=== PATIENT | male | born 1940 | race Caucasian/White ===

== ENCOUNTER 2017-07-06 16:49 | Inpatient (IN) | payer MEDICARE ==
[2017-07-06] VITALS (7 sets, daily range): BP systolic 110–150; BP diastolic 61–79; PULSE 65–121; RESP 18–20; TEMP 97.6–98.3; O2SAT 91–96
[~2017-07-06] VITALS: Ht 190.5 cm; Wt 119.5 kg
[~2017-07-06 16:49] MED LIST: AMAR4TAB PO; FURO1TAB93 PO; GLUCTAB PO; HYDR-2768 PO; LISI-591 PO; NIAC500 PO; POTA-243 PO; TAB-TAB PO; VERA240CR PO; Z.0.OXYGEN INH; ZOCO10TA PO
[2017-07-06] MEDS ORDERED: TRAD5TAB PO (17:00)
[2017-07-06] MEDS ORDERED: TAMS5CAP PO (17:00)
[2017-07-06] MEDS ORDERED: LISI-519 PO (17:00)
[2017-07-06] MEDS ORDERED: GLYB2.5T3 PO (17:00)
[2017-07-06] MEDS ORDERED: METF500T PO (17:00)
[2017-07-06] MEDS ORDERED: ASPI-183 PO (17:01)
[2017-07-06] MEDS ORDERED: HYDR12.57 PO (17:02)
[2017-07-06] MEDS ORDERED: FURO1TAB62 PO (17:02)
[2017-07-06] MEDS: RESP: ALBUTEROL 2.5 MG/IPRATROPIUM 0.5 MG NEB (SCH) INH (17:15)
[2017-07-06] MEDS ORDERED: methylPREDNISolone SOD SUCC 125 MG/2 ML VIAL IV PUSH ONE (17:15)
[2017-07-06 17:16] LABS: AUTOMATED NEUTROPHIL # 6.5 TH/MM3 (1.8-7.7); BASOPHIL # 0.2 TH/MM3 (0-0.2); BASOPHIL % 2.2 % (0.0-2.0); EOSINOPHIL # 0.2 TH/MM3 (0-0.4); EOSINOPHIL % 1.7 % (0.0-4.0); HEMATOCRIT 43.4 % (39.0-51.0); HEMOGLOBIN 13.9 GM/DL (13.0-17.0); LYMPH % 16.9 % (9.0-44.0); LYMPHOCYTE # 1.6 TH/MM3 (1.0-4.8); MEAN CELL VOLUME 93.7 FL (80.0-100.0); MEAN PLATELET VOLUME 8.7 FL (7.0-11.0); MONO % 12.2 % (0.0-8.0); MONOCYTE # 1.2 TH/MM3 (0-0.9); PLATELET COUNT 322 TH/MM3 (150-450); RED BLOOD COUNT 4.64 MIL/MM3 (4.50-5.90); RED CELL DISTRIBUTION WIDTH 14.4 % (11.6-17.2); WHITE BLOOD COUNT 9.7 TH/MM3 (4.0-11.0)
[2017-07-06] MEDS: SODIUM CHLORIDE 0.9% FLUSH 10 ML FLUSH IVF PRN ×2 (17:22→18:07)
--- NOTE | 2017-07-06 17:22 | RADRPT ---
EXAM DATE/TIME: 07/06/2017 17:12 [place] COMPARISON: No previous studies available for comparison. INDICATIONS : Short of breath MEDICAL HISTORY : Chronic obstructive pulmonary disease. Diabetes mellitus type II. SURGICAL HISTORY : None. ENCOUNTER: Initial ACUITY: 3 days PAIN SCORE: 0/10 LOCATION: Bilateral chest FINDINGS: Mild patchy air space opacities seen in both lungs, left more so than right and both sides basilar pr edominant. No dense or confluent consolidation. No pleural effusion or pneumothorax seen. Heart size upper limits of normal. CONCLUSION: Left greater than right patchy interstitial infiltrate. Viral or atypical pneumonia or early communit y acquired pneumonia are in the differential. Stephon Robert MD on July 06, 2017 at 17:18 Board Certified Radiologist. This report was verified electronically.
[2017-07-06 17:28] LABS: CHLORIDE 103 MEQ/L (98-107); INTERNATIONAL NORMALIZED RATIO 1.1 RATIO; PROTHROMBIN TIME - PATIENT 10.9 SEC (9.8-11.6); SODIUM (NA) 139 MEQ/L (136-145)
[2017-07-06 17:31] LABS: BICARBONATE 30.3 MEQ/L (21.0-32.0); CALCIUM 9.1 MG/DL (8.5-10.1); GLUCOSE,RANDOM 144 MG/DL (74-106)
[2017-07-06 17:32] LABS: BLOOD UREA NITROGEN 16 MG/DL (7-18)
[2017-07-06 17:35] LABS: GLOMERULAR FILTRATION RATE 65 ML/MIN (>89)
[2017-07-06 17:39] LABS: TROPONIN I LESS THAN 0.02 NG/ML (0.02-0.05)
--- NOTE | 2017-07-06 17:39 | PD ---
HPI Chief Complaint: Respiratory Symptoms Time Seen by Provider: 17:01 Travel History International Travel<30 days: No Contact w/Intl Traveler<30days: No Traveled to known affect area: No History of Present Illness HPI 77-year-old male came to the emergency room brought by EMS with history of progressive shortness of breath for past 2-3 days. Patient was recently diagnosed with atrial fibrillation last week. His daughter is here was giving more of the medical history. She is a nurse. Patient denies any chest pain. Patient says the shortness of breath is worse when he tries to lay down flat. Patient requires CPAP at night and says that the CPAP doesn't really help with this shortness of breath. He has to sleep sitting up. He has been short of breath on exertion as well. No history of fever or chills. He is not really coughing or bringing up any sputum patient requires 2 L of oxygen at home. His oxygen saturation was 90% on 2 L of oxygen. Patient has not seen a carousel operator yet and has an appointment on Friday. [facility] Past Medical History Narrative Medical List of his past medical, surgical, social and family history reviewed from the nursing note. Arthritis: Yes Asthma: No Atrial Fibrillation: Yes Autoimmune Disease: No Blood Disorders: No Anxiety: No Depression: No Cancer: No Cardiovascular Problems: Yes High Cholesterol: No Chest Pain: No Congestive Heart Failure: Yes COPD: Yes Cerebrovascular Accident: Yes Diabetes: Yes Patient Takes Glucophage: Yes Endocrine: Yes Glaucoma: No Genitourinary: No Headaches: Yes (OCCASSIONALLY) Hypertension: Yes Immune Disorder: No Musculoskeletal: Yes ( A CHILD 5 YO BROKE RIGHT ARM) Neurologic: Yes Psychiatric: No Reproductive: No Respiratory: Yes Migraines: No Myocardial Infarction: No Seizures: No Sleep Apnea: Yes (NEWLY DIAGNOSED IN PAST FEW DAYS) Thyroid Disease: No Influenza Vaccination: Yes ?: Not Past Surgical History AICD: No Arteriovenous Shunt: No Insulin Pump: No Joint Replacement: No Pacemaker: No Social History Alcohol Use: Yes (HX OF BUT NO LONGER DRINKS ALCOHOL.) Tobacco Use: No Substance Use: No Allergies-Medications (Allergen,Severity, Reaction): Coded Allergies: No Known Allergies (Verified Allergy, Unknown, 07/06/17) Comments No known drug allergies. Reported Meds & Prescriptions Reported Meds & Active Scripts Active Reported Lasix (Furosemide) 20 Mg Tab 20 Mg PO DAILY Hydrochlorothiazide 12.5 Mg Cap 0 PO DAILY Aspirin 325 Mg Tab 325 Mg PO DAILY Tradjenta (Linagliptin) 5 Mg Tab 5 Mg PO DAILY Flomax (Tamsulosin HCl) 0.4 Mg Cap 0 PO DAILY Metformin (Metformin HCl) 500 Mg Tab 0 PO BIDPC Glyburide 2.5 Mg Tab 0 PO BID Take with meals at the same time each day Lisinopril 5 Mg Tab 0 PO DAILY Narrative Medication List of his home medications reviewed from the nursing note. Review of Systems Except as stated in HPI: all other systems reviewed are Neg Respiratory: Positive: Shortness of Breath, Orthopnea Physical Exam Narrative GENERAL: Awake, alert, morbidly obese, moderate distress SKIN: Focused skin assessment warm/dry. HEAD: Atraumatic. Normocephalic. EYES: Pupils equal and round. No scleral icterus. No injection or drainage. ENT: No nasal bleeding or discharge. Mucous membranes pink and moist. NECK: Trachea midline. No JVD. CARDIOVASCULAR: Regular rate and rhythm. No murmur appreciated. RESPIRATORY: Diminished air entry bilaterally. GASTROINTESTINAL: Abdomen soft, non-tender, nondistended. Hepatic and splenic margins not palpable. MUSCULOSKELETAL: No obvious deformities. No clubbing. No cyanosis. No edema. NEUROLOGICAL: Awake and alert. No obvious cranial nerve deficits. Motor grossly within normal limits. Normal speech. PSYCHIATRIC: Appropriate mood and affect; insight and judgment normal. Data Data Last Documented VS Vital Signs Date Time Temp Pulse Resp B/P (MAP) Pulse Ox O2 Delivery O2 Flow Rate FiO2 07/06/17 17:23 65 18 150/65 (93) 95 Aerosol Mask 07/06/17 17:15 4.00 07/06/17 16:55 98.3 Orders Orders Complete Blood Count With Diff (07/06/17 17:07) Basic Metabolic Panel (Bmp) (07/06/17 17:07) B-Type Natriuretic Peptide (07/06/17 17:07) Prothrombin Time / Inr (Pt) (07/06/17 17:07) Troponin I (07/06/17 17:07) Iv Access Insert/Monitor (07/06/17 17:07) Electrocardiogram (07/06/17 17:07) Ecg Monitoring (07/06/17 17:07) Oximetry (07/06/17 17:07) Oxygen Administration (07/06/17 17:07) Chest, Single Ap (07/06/17 17:07) Sodium Chloride 0.9% Flush (Ns Flush) (07/06/17 17:15) Methylprednisolone So Succ Inj (Solumedr (07/06/17 17:15) Albuterol-Ipratropium Neb (Duoneb Neb) (07/06/17 17:15) Blood Culture (07/06/17 17:47) Ceftriaxone Inj (Rocephin Inj) (07/06/17 18:00) Azithromycin Inj (Zithromax Inj) (07/06/17 18:00) Furosemide Inj (Lasix Inj) (07/06/17 18:00) Admit Order (Ed Use Only) (07/06/17 17:59) Labs Laboratory Tests Test 07/06/17 17:00 White Blood Count 9.7 TH/MM3 Red Blood Count 4.64 MIL/MM3 Hemoglobin 13.9 GM/DL Hematocrit 43.4 % Mean Corpuscular Volume 93.7 FL Mean Corpuscular Hemoglobin 30.0 PG Mean Corpuscular Hemoglobin Concent 32.0 % Red Cell Distribution Width 14.4 % Platelet Count 322 TH/MM3 Mean Platelet Volume 8.7 FL Neutrophils (%) (Auto) 67.0 % Lymphocytes (%) (Auto) 16.9 % Monocytes (%) (Auto) 12.2 % Eosinophils (%) (Auto) 1.7 % Basophils (%) (Auto) 2.2 % Neutrophils # (Auto) 6.5 TH/MM3 Lymphocytes # (Auto) 1.6 TH/MM3 Monocytes # (Auto) 1.2 TH/MM3 Eosinophils # (Auto) 0.2 TH/MM3 Basophils # (Auto) 0.2 TH/MM3 CBC Comment DIFF FINAL Differential Comment Prothrombin Time 10.9 SEC Prothromb Time International Ratio 1.1 RATIO Blood Urea Nitrogen 16 MG/DL Creatinine 1.10 MG/DL Random Glucose 144 MG/DL Calcium Level 9.1 MG/DL Sodium Level 139 MEQ/L Potassium Level 4.0 MEQ/L Chloride Level 103 MEQ/L Carbon Dioxide Level 30.3 MEQ/L Anion Gap 6 MEQ/L Estimat Glomerular Filtration Rate 65 ML/MIN Troponin I LESS THAN 0.02 NG/ML B-Type Natriuretic Peptide 476 PG/ML MDM Medical Decision Making Medical Screen Exam Complete: Yes Emergency Medical Condition: Yes Medical Record Reviewed: Yes Interpretation(s) Elevated EKG was reviewed by me. Atrial fibrillation, left axis deviation, LVH by voltage. Heart rate of 72 bpm. Differential Diagnosis CHF, COPD, pneumonia Narrative Course 6:05 PM she was given 2 DuoNeb times and IV Lasix. Blood test results came back in its within acceptable limits except for BNP of was 500. Chest x-rays read by the radiologist as bilateral interstitial infiltrate possibly pneumonia. Based on that I have given him IV Rocephin and Zithromax. However in my opinion this could be pulmonary edema given the fact that patient does not have any fever, cough or I high white blood cell count. Decided to admit him and I discussed the case with the patient and the family who are in agreement. I discussed the case with the hospitalist who accepted the patient. Procedures EKG Prior to Arrival: No Diagnosis Primary Impression: Respiratory distress Additional Impressions: CHF (congestive heart failure) Qualified Codes: I50.9 - Heart failure, unspecified Pneumonia Qualified Codes: J18.9 - Pneumonia, unspecified organism Admitting Information Admitting Physician Requests: it Serene Alaniz MD Jul 06, 2017 17:39
[2017-07-06] MEDS ORDERED: FUROSEMIDE 40 MG/4 ML VIAL IV PUSH ONE (18:00)
[2017-07-06] MEDS ORDERED: cefTRIAXone INJ 1,000 MG in SODIUM CHLORIDE 0.9% INJ 100 ML IV ONE (18:00)
[2017-07-06] MEDS ORDERED: AZITHROMYCIN INJ 500 MG in SODIUM CHLOR 0.9% 250 ML INJ 250 ML IV ONE (18:00)
[2017-07-06] MEDS ORDERED: BISACODYL 10 MG SUPP RECTAL PRN (19:00)
[2017-07-06] MEDS ORDERED: TEMAZEPAM 15 MG CAP PO PRN (19:00)
[2017-07-06] MEDS ORDERED: NALOXONE HCL 0.4 MG/ML AMP IV PUSH PRN (19:00)
[2017-07-06] MEDS ORDERED: ACETAMINOPHEN 325 MG TAB PO PRN (19:00)
[2017-07-06] MEDS ORDERED: SODIUM CHLORIDE 0.9% FLUSH 10 ML FLUSH IV FLUSH PRN (19:00)
[2017-07-06] MEDS ORDERED: SENNOSIDES 8.6 MG TAB PO PRN (19:00)
--- NOTE | 2017-07-06 19:09 | HHI.HP ---
HPI Service [facility] Hospitalists Primary Care Physician Torin Ventura MD Admission Diagnosis respiratory distress, congestive heart failure, pneumonia Chief Complaint: increasing SOB over several days Travel History International Travel<30 Days: No Contact w/Intl Traveler <30 Da: No Traveled to Known Affected Are: No History of Present Illness 77-year-old male came to the emergency room brought by EMS with history of progressive shortness of breath for past 2-3 days. Patient was recently diagnosed with atrial fibrillation last week. His daughter is here was giving more of the medical history. She is a nurse. Patient denies any chest pain. Patient says the shortness of breath is worse when he tries to lay down flat. Patient requires CPAP at night and says that the CPAP doesn't really help with this shortness of breath. He has to sleep sitting up. He has been short of breath on exertion as well. No history of fever or chills. He is not really coughing or bringing up any sputum patient requires 2 L of oxygen at home. His oxygen saturation was 90% on 2 L of oxygen. Patient has not seen a steam drier tender yet and has an appointment on Friday. In er chest xray was consistent with probable CHF and possibly infiltrates and given lasix and started on rocephin and zithromax. Review of Systems Respiratory: COMPLAINS OF: Shortness of breath Cardiovascular: COMPLAINS OF: Dyspnea on Exertion Past Family Social History Past Medical History sleep apnea,CHF new onset afib,copd cva diverticulosis Past Surgical History fx arm and hand Reported Medications lasix 20 hctz 12.5,trajenta5,flomax.4 metformin 500 bid,glyburide 2.5 bid lisinopril5 Allergies: Coded Allergies: No Known Allergies (Verified Adverse Reaction, Unknown, 07/06/17) Social History former heavy smoker none over 8 years rare etoh Physical Exam Vital Signs Vital Signs Date Time Temp Pulse Resp B/P (MAP) Pulse Ox O2 Delivery O2 Flow Rate FiO2 07/06/17 18:24 91 Nasal Cannula 4.00 07/06/17 18:24 79 20 110/79 (89) 91 Nasal Cannula 2.00 07/06/17 17:23 65 18 150/65 (93) 95 Aerosol Mask 07/06/17 17:15 93 Nasal Cannula 4.00 07/06/17 17:14 92 Nasal Cannula 4.00 07/06/17 17:06 22 92 Nasal Cannula 2.00 07/06/17 16:55 98.3 88 20 138/73 (94) 92 Physical Exam GENERAL: This is a well-nourished, well-developed patient, in no apparent distress. SKIN: No rashes, ecchymoses or lesions. Cool and dry. HEAD: Atraumatic. Normocephalic. No temporal or scalp tenderness. EYES: Pupils equal round and reactive. Extraocular motions intact. No scleral icterus. No injection or drainage. ENT: Nose without bleeding, purulent drainage or septal hematoma. Throat without erythema, tonsillar hypertrophy or exudate. Uvula midline. Airway patent. NECK: Trachea midline. No JVD or lymphadenopathy. Supple, nontender, no meningeal signs. CARDIOVASCULAR: Regular rate and rhythm without murmurs, gallops, or rubs. RESPIRATORY: Bilateral decrease breath sounds with rales GASTROINTESTINAL: Abdomen soft, non-tender, nondistended. No hepato-splenomegaly , or palpable masses. No guarding. MUSCULOSKELETAL: Extremities without clubbing, cyanosis, or edema. No joint tenderness, effusion, or edema noted. No calf tenderness. Negative Homans sign bilaterally. NEUROLOGICAL: Awake and alert. Cranial nerves II through XII intact. Motor and sensory grossly within normal limits. Five out of 5 muscle strength in all muscle groups. Normal speech. Laboratory Laboratory Tests Test 07/06/17 17:00 White Blood Count 9.7 Red Blood Count 4.64 Hemoglobin 13.9 Hematocrit 43.4 Mean Corpuscular Volume 93.7 Mean Corpuscular Hemoglobin 30.0 Mean Corpuscular Hemoglobin Concent 32.0 Red Cell Distribution Width 14.4 Platelet Count 322 Mean Platelet Volume 8.7 Neutrophils (%) (Auto) 67.0 Lymphocytes (%) (Auto) 16.9 Monocytes (%) (Auto) 12.2 Eosinophils (%) (Auto) 1.7 Basophils (%) (Auto) 2.2 Neutrophils # (Auto) 6.5 Lymphocytes # (Auto) 1.6 Monocytes # (Auto) 1.2 Eosinophils # (Auto) 0.2 Basophils # (Auto) 0.2 CBC Comment DIFF FINAL Differential Comment Prothrombin Time 10.9 Prothromb Time International Ratio 1.1 Blood Urea Nitrogen 16 Creatinine 1.10 Random Glucose 144 Calcium Level 9.1 Sodium Level 139 Potassium Level 4.0 Chloride Level 103 Carbon Dioxide Level 30.3 Anion Gap 6 Estimat Glomerular Filtration Rate 65 Troponin I LESS THAN 0.02 B-Type Natriuretic Peptide 476 Date/Time Source Procedure Growth Status 07/06/17 18:05 Blood Peripheral Aerobic Blood Culture Pending Received 07/06/17 18:05 Blood Peripheral Anaerobic Blood Culture Pending Received Result Diagram: 07/06/17 1700 07/06/17 1700 Imaging Last 24 hours Impressions Chest X-Ray 07/06/17 1707 Signed Impressions: Service Date/Time: Thursday, July 06, 2017 17:12 - CONCLUSION: Left greater than right patchy interstitial infiltrate. Viral or atypical pneumonia or early community acquired pneumonia are in the differential. Stephon Robert MD Course started on lasix rpcephin and zithromax ekg controlled a fib Ezequielrini VTE Risk Assessment Caprini VTE Risk Assessment: Mod/High Risk (score >= 2) Caprini Risk Assessment Model Point Value = 1 Point Value = 2 Point Value = 3 Point Value = 5 Age 41-60 Minor surgery BMI > 25 kg/m2 Swollen legs Varicose veins or History of unexplained or recurrent spontaneous Oral contraceptives or hormone replacement Sepsis (< 1 month) Serious lung disease, including pneumonia (< 1 month) Abnormal pulmonary function Acute myocardial infarction Congestive heart failure (< 1 month) History of inflammatory bowel disease Medical patient at bed rest Age 61-74 Arthroscopic surgery Major open surgery (> 45 min) Laparoscopic surgery (> 45 min) Malignancy Confined to bed (> 72 hours) Immobilizing plaster cast Central venous access Age >= 75 History of VTE Family history of VTE Factor V Leiden Prothrombin 22216C Lupus anticoagulant Anticardiolipin antibodies Elevated serum homocysteine Heparin-induced thrombocytopenia Other congenital or acquired thrombophilia Stroke (< 1 month) Elective arthroplasty Hip, pelvis, or leg fracture Acute spinal cord injury (< 1 month) Prophylaxis Regimen Total Risk Factor Score Risk Level Prophylaxis Regimen 0-1 Low Early ambulation 2 Moderate Order ONE of the following: *Sequential Compression Device (SCD) *Heparin 5000 units SQ BID 3-4 Higher Order ONE of the following medications: *Heparin 5000 units SQ TID *Enoxaparin/Lovenox 40 mg SQ daily (WT < 150 kg, CrCl > 30 mL/min) *Enoxaparin/Lovenox 30 mg SQ daily (WT < 150 kg, CrCl > 10-29 mL/min) *Enoxaparin/Lovenox 30 mg SQ BID (WT < 150 kg, CrCl > 30 mL/min) AND/OR *Sequential Compression Device (SCD) 5 or more Highest Order ONE of the following medications: *Heparin 5000 units SQ TID (Preferred with Epidurals) *Enoxaparin/Lovenox 40 mg SQ daily (WT < 150 kg, CrCl > 30 mL/min) *Enoxaparin/Lovenox 30 mg SQ daily (WT < 150 kg, CrCl > 10-29 mL/min) *Enoxaparin/Lovenox 30 mg SQ BID (WT < 150 kg, CrCl > 30 mL/min) AND *Sequential Compression Device (SCD) Assessment and Plan Problem List: (1) Respiratory distress ICD Codes: R06.03 - Acute respiratory distress Status: Acute Plan: continue oxygen uses 2l at home at night (2) CHF (congestive heart failure) ICD Codes: I50.9 - Heart failure, unspecified Status: Acute Plan: will need 2d echo continue lasix IV follow labs consult cardiology (3) Pneumonia ICD Codes: J18.9 - Pneumonia, unspecified organism Status: Acute Plan: continue rocephin and zithromax Assessment and Plan further plan as case develops Code Status full Discussed Condition With patient Physician Certification 2 Midnight Certification Type: Admission for Inpatient Services Order for Inpatient Services The services are ordered in accordance with Medicare regulations or non- Medicare payer requirements, as applicable. In the case of services not specified as inpatient-only, they are appropriately provided as inpatient services in accordance with the 2-midnight benchmark. Estimated LOS (days): 3 3 days is the estimated time the patient will need to remain in the hospital, assuming treatment plan goals are met and no additional complications. Post-Hospital Plan: Not yet determined Problem Qualifiers (1) CHF (congestive heart failure): Qualified Codes: I50.9 - Heart failure, unspecified (2) Pneumonia: Qualified Codes: J18.9 - Pneumonia, unspecified organism John Lucas MD Jul 06, 2017 19:09
[2017-07-06] MEDS ORDERED: GLUCAGON 1 MG/ML VIAL OTHER PRN (19:30)
[2017-07-06] MEDS ORDERED: DEXTROSE 50% IN WATER 50 ML VIAL(D50) IV PUSH PRN (19:30)
[2017-07-06] MEDS: INSULIN ASPART SUPPLEMENTAL SCALE SQ SCH (20:53)
[2017-07-06] MEDS: DOCUSATE SODIUM 50 MG/SENNA 8.6 MG TAB PO SCH (20:54)
[2017-07-06] MEDS: SODIUM CHLORIDE 0.9% FLUSH 10 ML FLUSH IV FLUSH SCH (20:55)
[2017-07-07] VITALS (8 sets, daily range): BP systolic 100–150; BP diastolic 60–78; PULSE 80–106; RESP 16–22; TEMP 95.4–98.6; O2SAT 91–96
[2017-07-07 06:37] LABS: BICARBONATE 30.2 MEQ/L (21.0-32.0)
[2017-07-07] MEDS: glyBURIDE 2.5 MG TAB PO SCH ×2 (08:00→17:00)
[2017-07-07] MEDS: INSULIN ASPART SUPPLEMENTAL SCALE SQ SCH ×4 (08:00→21:00)
[2017-07-07] MEDS: ASPIRIN 325 MG TAB PO SCH (08:45)
[2017-07-07] MEDS: TAMSULOSIN HCL 0.4 MG CAP PO SCH (08:46)
[2017-07-07] MEDS: metFORMIN HCL 500 MG TAB PO SCH ×2 (08:46→17:46)
[2017-07-07] MEDS: DOCUSATE SODIUM 50 MG/SENNA 8.6 MG TAB PO SCH ×2 (08:46→21:30)
[2017-07-07] MEDS: FUROSEMIDE 20 MG/2 ML VIAL IV PUSH SCH ×2 (08:46→17:47)
[2017-07-07] MEDS: SODIUM CHLORIDE 0.9% FLUSH 10 ML FLUSH IV FLUSH SCH ×2 (08:47→21:30)
[2017-07-07] MEDS: PATIENT OWN: (Linagliptin (Tradjenta) 5 MG) PO SCH (09:00)
[2017-07-07] MEDS ORDERED: LISINOPRIL 5 MG TAB PO SCH (09:00)
[2017-07-07] MEDS ORDERED: PNEUMOCOCCAL POLYVALENT INJ 25 MCG/0.5 ML SYR IM ONE (10:00)
[2017-07-07] MEDS ORDERED: POTASSIUM CHLORIDE 8 MEQ CONTROLLED RELEASE TAB PO ONE (10:30)
--- NOTE | 2017-07-07 10:39 | HHI.PR ---
Subjective Remarks Patient admitted to hospital with SOB in CHF also ?infiltrates started on Lasix IV and Rocephin and Zithromax ,pending 2d echo and cardiac evaluation as was found as out patient to be in atrial fib was increased to full asa is on gumaro and will check lipids as well. Patient still with some SOB is urinating well. Patient did not sleep will increase temazepam to 30mg and potassium was at 3.8 start po potassium today. Patient on review of EKG strip had increase in heart rate ,may need addition of b brandon . Objective Vitals GENERAL: SKIN: Warm and dry. HEAD: Atraumatic. Normocephalic. EYES: Pupils equal and round. No scleral icterus. No injection or drainage. ENT: No nasal bleeding or discharge. Mucous membranes pink and moist. NECK: Trachea midline. No JVD. CARDIOVASCULAR: IRREG rate. RESPIRATORY: No accessory muscle use. Rales bases better air movement GASTROINTESTINAL: Abdomen soft, non-tender, nondistended. Hepatic and splenic margins not palpable. MUSCULOSKELETAL: Extremities without clubbing, cyanosis, or edema. No obvious deformities. NEUROLOGICAL: Awake and alert. No obvious cranial nerve deficits. Motor grossly within normal limits. Five out of 5 muscle strength in the arms and legs. Normal speech. PSYCHIATRIC: Appropriate mood and affect; insight and judgment normal. Vital Signs Date Time Temp Pulse Resp B/P (MAP) Pulse Ox O2 Delivery O2 Flow Rate FiO2 07/07/17 08:24 92 Nasal Cannula 3.00 07/07/17 08:00 98.6 106 22 143/69 (93) 94 07/07/17 05:41 98.0 80 22 127/65 (85) 91 07/07/17 00:24 97.9 96 18 100/62 (75) 93 07/06/17 22:00 121 07/06/17 21:01 97.6 111 20 112/61 (78) 91 07/06/17 19:40 07/06/17 19:25 110 96 Nasal Cannula 4.00 07/06/17 19:20 92 20 93 Nasal Cannula 4.00 07/06/17 18:24 91 Nasal Cannula 4.00 07/06/17 18:24 79 20 110/79 (89) 91 Nasal Cannula 2.00 07/06/17 17:23 65 18 150/65 (93) 95 Aerosol Mask 07/06/17 17:15 93 Nasal Cannula 4.00 07/06/17 17:14 92 Nasal Cannula 4.00 07/06/17 17:06 22 92 Nasal Cannula 2.00 07/06/17 16:55 98.3 88 20 138/73 (94) 92 Result Diagram: 07/06/17 1700 07/07/17 0445 Imaging Last 24 hours Impressions Chest X-Ray 07/06/17 1707 Signed Impressions: Service Date/Time: Thursday, July 06, 2017 17:12 - CONCLUSION: Left greater than right patchy interstitial infiltrate. Viral or atypical pneumonia or early community acquired pneumonia are in the differential. Stephon Robert MD A/P Problem List: (1) Respiratory distress ICD Codes: R06.03 - Acute respiratory distress Status: Acute Plan: continue oxygen uses 2l at home at night will monitor oxygen saturations (2) CHF (congestive heart failure) ICD Codes: I50.9 - Heart failure, unspecified Status: Acute Plan: will need 2d echo continue lasix IV follow labs consult cardiology BNP still elevated (3) Pneumonia ICD Codes: J18.9 - Pneumonia, unspecified organism Status: Acute Plan: continue rocephin and zithromax (4) Atrial fibrillation ICD Codes: I48.91 - Unspecified atrial fibrillation Plan: await cardiac evaluation continue for now full asa 2d echo pending may need b brandon Assessment and Plan continue current plan Problem Qualifiers (1) CHF (congestive heart failure): Qualified Codes: I50.9 - Heart failure, unspecified (2) Pneumonia: Qualified Codes: J18.9 - Pneumonia, unspecified organism (3) Atrial fibrillation: Qualified Codes: I48.91 - Unspecified atrial fibrillation John Lucas MD Jul 07, 2017 10:39
--- NOTE | 2017-07-07 13:15 | PD.CONS ---
HPI Consult Requested By Primary Care Physician Torin Ventura MD History of Present Illness 77-year-old male with a past medical history of COPD on O2, DM, HTN, BPH who presented for shortness of breath. The patient had been having shortness of breath for the past 2 or 3 days. He has been having orthopnea. He denies any lower extremity swelling, cough, fever, chills. He denies any chest pain or palpitations. He denies any prior history of heart disease, CHF, or arrhythmia. He had an EKG done last week which showed frequent PACs, EKG and telemetry currently seem to show the same. He had a chest x-ray which showed pneumonia vs edema. He's received antibiotics and IV diuretics overnight and is feeling somewhat improved today. (Sathya Vargas) Review of Systems Negative except as stated in history of present illness (Sathya Vargas) Past Family Social History Allergies: Coded Allergies: No Known Allergies (Verified Allergy, Unknown, 07/06/17) Past Medical History COPD on O2 Diabetes mellitus CVA Diverticulosis Hypertension BPH Past Surgical History fx arm and hand Reported Medications Reported Meds & Active Scripts Active Reported Lasix (Furosemide) 20 Mg Tab 20 Mg PO DAILY Hydrochlorothiazide 12.5 Mg Cap 0 PO DAILY Aspirin 325 Mg Tab 325 Mg PO DAILY Tradjenta (Linagliptin) 5 Mg Tab 5 Mg PO DAILY Flomax (Tamsulosin HCl) 0.4 Mg Cap 0 PO DAILY Metformin (Metformin HCl) 500 Mg Tab 0 PO BIDPC Glyburide 2.5 Mg Tab 0 PO BID Take with meals at the same time each day Lisinopril 5 Mg Tab 0 PO DAILY Active Ordered Medications Current Medications Medications (Trade) Dose Ordered Sig/Smiley Route Start Time Stop Time Status Last Admin (Aspirin) 325 mg DAILY PO 07/07/17 09:00 07/07/17 08:45 (Diabeta) 2.5 mg DAILY@0800,1700 PO 07/07/17 08:00 (Prinivil) 5 mg DAILY PO 07/07/17 09:00 07/07/17 08:45 (Glucophage) 500 mg BIDPC PO 07/07/17 09:00 07/07/17 08:46 (Flomax) 0.4 mg DAILY PO 07/07/17 09:00 07/07/17 08:46 (Lasix Inj) 20 mg BID@09,18 IV PUSH 07/07/17 09:00 07/07/17 08:46 (NS Flush) 2 ml UNSCH PRN IV FLUSH 07/06/17 19:00 (NS Flush) 2 ml BID IV FLUSH 07/06/17 21:00 07/07/17 08:47 (Tylenol) 650 mg Q4H PRN PO 07/06/17 19:00 (Narcan Inj) 0.4 mg UNSCH PRN IV PUSH 07/06/17 19:00 (Cristina-Colace) 1 tab BID PO 07/06/17 21:00 07/07/17 08:46 (Milk Of Magnesia Liq) 30 ml Q12H PRN PO 07/06/17 19:00 (Senokot) 17.2 mg Q12H PRN PO 07/06/17 19:00 (Dulcolax Supp) 10 mg DAILY PRN RECTAL 07/06/17 19:00 (Lactulose Liq) 30 ml DAILY PRN PO 07/06/17 19:00 Ceftriaxone Sodium 1000 mg/ Sodium Chloride 100 ml @ 200 mls/hr Q24H IV 07/07/17 17:00 Azithromycin 500 mg/Sodium Chloride 250 ml @ 250 mls/hr Q24H IV 07/07/17 18:00 (NovoLOG SUPPLEMENTAL SCALE) 1 ACHS SLIDING SCALE SQ 07/06/17 21:00 Patient Own Medication PT OWN MED: (Linagliptin (Tradjenta)... DAILY PO 07/07/17 09:00 (D50w (Vial) Inj) 50 ml UNSCH PRN IV PUSH 07/06/17 19:30 (Glucagon Inj) 1 mg UNSCH PRN OTHER 07/06/17 19:30 (KCl) 8 meq DAILY PO 07/08/17 09:00 (Restoril) 30 mg HS PRN PO 07/07/17 21:00 Family History Denies family history of heart disease Social History former heavy smoker none over 8 years rare etoh (Sathya Vargas) Physical Exam Vital Signs Vital Signs Date Time Temp Pulse Resp B/P (MAP) Pulse Ox O2 Delivery O2 Flow Rate FiO2 07/07/17 08:24 92 Nasal Cannula 3.00 07/07/17 08:00 98.6 106 22 143/69 (93) 94 07/07/17 05:41 98.0 80 22 127/65 (85) 91 07/07/17 00:24 97.9 96 18 100/62 (75) 93 07/06/17 22:00 121 07/06/17 21:01 97.6 111 20 112/61 (78) 91 07/06/17 19:40 07/06/17 19:25 110 96 Nasal Cannula 4.00 07/06/17 19:20 92 20 93 Nasal Cannula 4.00 07/06/17 18:24 91 Nasal Cannula 4.00 07/06/17 18:24 79 20 110/79 (89) 91 Nasal Cannula 2.00 07/06/17 17:23 65 18 150/65 (93) 95 Aerosol Mask 07/06/17 17:15 93 Nasal Cannula 4.00 07/06/17 17:14 92 Nasal Cannula 4.00 07/06/17 17:06 22 92 Nasal Cannula 2.00 07/06/17 16:55 98.3 88 20 138/73 (94) 92 Physical Exam GENERAL: Well-developed well-nourished. In no acute distress. NECK: No carotid bruits. No JVD. CARDIOVASCULAR: Controlled rate and irregular rhythm. No murmur appreciated. RESPIRATORY: No accessory muscle use. Clear to auscultation. Diminished breath sounds in the bases, no crackles. MUSCULOSKELETAL: No clubbing or cyanosis. No edema. NEUROLOGICAL: Awake and alert. Normal speech. Laboratory Laboratory Tests Test 07/06/17 17:00 07/07/17 04:45 White Blood Count 9.7 Red Blood Count 4.64 Hemoglobin 13.9 Hematocrit 43.4 Mean Corpuscular Volume 93.7 Mean Corpuscular Hemoglobin 30.0 Mean Corpuscular Hemoglobin Concent 32.0 Red Cell Distribution Width 14.4 Platelet Count 322 Mean Platelet Volume 8.7 Neutrophils (%) (Auto) 67.0 Lymphocytes (%) (Auto) 16.9 Monocytes (%) (Auto) 12.2 Eosinophils (%) (Auto) 1.7 Basophils (%) (Auto) 2.2 Neutrophils # (Auto) 6.5 Lymphocytes # (Auto) 1.6 Monocytes # (Auto) 1.2 Eosinophils # (Auto) 0.2 Basophils # (Auto) 0.2 CBC Comment DIFF FINAL Differential Comment Prothrombin Time 10.9 Prothromb Time International Ratio 1.1 Blood Urea Nitrogen 16 19 Creatinine 1.10 1.00 Random Glucose 144 200 Calcium Level 9.1 9.0 Sodium Level 139 140 Potassium Level 4.0 3.8 Chloride Level 103 102 Carbon Dioxide Level 30.3 30.2 Anion Gap 6 8 Estimat Glomerular Filtration Rate 65 72 Troponin I LESS THAN 0.02 B-Type Natriuretic Peptide 476 487 Date/Time Source Procedure Growth Status 07/06/17 18:05 Blood Peripheral Aerobic Blood Culture - Preliminary NO GROWTH IN 1 DAY Resulted 07/06/17 18:05 Blood Peripheral Anaerobic Blood Culture - Preliminary NO GROWTH IN 1 DAY Resulted (Sathya Vargas) Result Diagram: 07/06/17 1700 07/07/17 0445 Imaging Last Impressions Chest X-Ray 07/06/171706 Signed Impressions: Service Date/Time: Thursday, July 06, 2017 17:12 - CONCLUSION: Left greater than right patchy interstitial infiltrate. Viral or atypical pneumonia or early community acquired pneumonia are in the differential. Stephon Robert MD (Sathya Vargas) Assessment and Plan Assessment and Plan 77-year-old male with a past medical history of COPD on O2, DM, HTN, BPH who presented for shortness of breath. The patient had been having shortness of breath for the past 2 or 3 days. He has been having orthopnea. He denies any lower extremity swelling, cough, fever, chills. He denies any chest pain or palpitations. He denies any prior history of heart disease, CHF, or arrhythmia. He had an EKG done last week which showed frequent PACs, EKG and telemetry currently seem to show the same. He had a chest x-ray which showed pneumonia vs edema. He's received antibiotics and IV diuretics overnight and is feeling somewhat improved today. Frequent PACs: EKG and telemetry appear to show benign arrhythmia, no A. fib. Dyspnea: Seems more secondary to COPD and possible pneumonia. Receiving antibiotics and diuresis. Echocardiogram performed, results pending. Nothing further to add from a cardiology standpoint, we will sign off at this time, please call with any questions. Discussed Condition With Dr. Sam (Sathya Vargas) Assessment and Plan EKGs reviewed, inpatient and outpatient. Appears to be sinus rhythm with frequent PACs, not atrial fibrillation. maybe even polymorphic atrial tachycardia echo start cardizem PO sign off call with further questions (Juan C Sam MD) Sathya Vargas Jul 07, 2017 13:15 Juan C Sam MD Jul 07, 2017 13:44
[2017-07-07] MEDS: DILTIAZEM-CD 240 MG CAP ER PO SCH (14:06)
--- NOTE | 2017-07-07 16:09 | ECHRPT ---
Indication: heart failure CONCLUSIONS Mildly dilated left ventricle. The left ventricular systolic function is severely reduced with an estimated ejection fraction in th e range of 25-30%. The left atrial size is mildly dilated. Aortic root is mildly dilated. Mild mitral valve regurgitation. Mild aortic valve regurgitation. There is mild tricuspid valve regurgitation. The estimated pulmonary arterial pressure is 42 mmHg. BP: / HR: Rhythm: MEASUREMENTS (Male / Female) Normal Values Technical Quality:Technically difficult study 2D ECHO LV Diastolic Diameter PLAX 6.8 cm 4.2 - 5.9 / 3.9 - 5.3 cm LV Systolic Diameter PLAX 6.0 cm IVS Diastolic Thickness 1.5 cm 0.6 - 1.0 / 0.6 - 0.9 cm LVPW Diastolic Thickness 1.3 cm 0.6 - 1.0 / 0.6 - 0.9 cm LV Relative Wall Thickness 0.4 RV Internal Dim ED PLAX 2.6 cm M-MODE Aortic Root Diameter MM 4.6 cm LA Systolic Diameter MM 4.6 cm LA Ao Ratio MM 1.0 AV Cusp Separation MM 1.9 cm DOPPLER AV Peak Velocity 182.0 cm/s AV Peak Gradient 13.2 mmHg AV Mean Gradient 6.0 mmHg AV Velocity Time Integral 24.4 cm AI Peak Velocity 356.0 cm/s AI Peak Gradient 50.7 mmHg AI Pressure Half Time 478.0 ms Mitral E Point Velocity 75.0 cm/s Mitral A Point Velocity 147.0 cm/s Mitral E to A Ratio 0.5 LV E' Lateral Velocity 5.6 cm/s Mitral E to LV E' Lateral Ratio 13.5 LV E' Septal Velocity 6.0 cm/s Mitral E to LV E' Septal Ratio 12.4 TR Peak Velocity 284.0 cm/s TR Peak Gradient 32.3 mmHg Right Atrial Pressure 10.0 mmHg Pulmonary Artery Systolic Pressu 42.3 mmHg Right Ventricular Systolic Press 42.3 mmHg FINDINGS LEFT VENTRICLE Mildly dilated left ventricle. The left ventricular systolic function is severely reduced with an estimated ejection fraction in th e range of 25-30%. RIGHT VENTRICLE Normal right ventricular size and systolic function. LEFT ATRIUM The left atrial size is mildly dilated. RIGHT ATRIUM The right atrial size is normal. ATRIAL SEPTUM Normal atrial septal thickness without atrial level shunting by limited color doppler interrogation. AORTA Aortic Root 4.6 cm MITRAL VALVE Structurally normal mitral valve. Mild mitral valve regurgitation. AORTIC VALVE Trileaflet aortic valve. Mild aortic valve regurgitation. TRICUSPID VALVE Structurally normal tricuspid valve. There is mild tricuspid valve regurgitation. The estimated pulmonary arterial pressure is 42.3 mmHg. PULMONARY VALVE No pulmonary valve regurgitation or stenosis. VESSELS The inferior vena cava is normal in size. PERICARDIUM No pericardial effusion. Debbie Mckinney MD, FACC (Electronically Signed) Final Date:07 July 2017 16:08
[2017-07-07] MEDS: cefTRIAXone INJ 1,000 MG in SODIUM CHLORIDE 0.9% INJ 100 ML IV SCH (17:47)
[2017-07-07] MEDS ORDERED: AZITHROMYCIN INJ 500 MG in SODIUM CHLOR 0.9% 250 ML INJ 250 ML IV SCH (18:00)
--- NOTE | 2017-07-07 19:16 | EKG ---
Date Performed: 07/06/2017 Time Performed: 16:55:26 PTAGE: 77 years EKG: ATRIAL FIBRILLATION MARKED LEFT AXIS DEVIATION MODERATE INTRAVENTRICULAR CONDUCTION DELAY M ODERATE VOLTAGE CRITERIA FOR LVH, CONSIDER NORMAL VARIANT NONSPECIFIC ST & T-WAVE ABNORMALITY Since p revious tracing, no significant change noted ABNORMAL ECG PREVIOUS TRACING : 07/08/2007 10.14.14 DOCTOR: Matthew Poole Interpretating Date/Time 07/07/2017 19:14:34
[2017-07-07] MEDS: TEMAZEPAM 15 MG CAP PO PRN (21:30)
[2017-07-08] VITALS (9 sets, daily range): BP systolic 128–162; BP diastolic 59–85; PULSE 63–85; RESP 12–20; TEMP 96.2–99; O2SAT 91–94
[2017-07-08 06:55] LABS: CALCIUM 9.2 MG/DL (8.5-10.1)
[2017-07-08 07:02] LABS: BICARBONATE 35.3 MEQ/L (21.0-32.0)
[2017-07-08] MEDS: glyBURIDE 2.5 MG TAB PO SCH ×2 (08:00→16:47)
[2017-07-08] MEDS: INSULIN ASPART SUPPLEMENTAL SCALE SQ SCH ×4 (08:00→21:00)
[2017-07-08] MEDS: PATIENT OWN: (Linagliptin (Tradjenta) 5 MG) PO SCH (08:15)
[2017-07-08] MEDS: metFORMIN HCL 500 MG TAB PO SCH ×2 (08:15→16:46)
[2017-07-08] MEDS ORDERED: POTASSIUM CHLORIDE 8 MEQ CAP PO SCH (09:00)
[2017-07-08] MEDS: FUROSEMIDE 20 MG/2 ML VIAL IV PUSH SCH (09:07)
[2017-07-08] MEDS: TAMSULOSIN HCL 0.4 MG CAP PO SCH (09:07)
[2017-07-08] MEDS: DILTIAZEM-CD 240 MG CAP ER PO SCH (09:07)
[2017-07-08] MEDS: LISINOPRIL 20 MG TAB PO SCH (09:08)
[2017-07-08] MEDS: DOCUSATE SODIUM 50 MG/SENNA 8.6 MG TAB PO SCH ×2 (09:08→22:06)
[2017-07-08] MEDS: ASPIRIN 325 MG TAB PO SCH (09:09)
[2017-07-08] MEDS: SODIUM CHLORIDE 0.9% FLUSH 10 ML FLUSH IV FLUSH SCH ×2 (09:09→22:06)
--- NOTE | 2017-07-08 09:16 | PD.CARD.PN ---
Subjective Subjective Remarks Patient reports his breathing is back to baseline. With his home CPAP machine, he was able to sleep flat, no orthopnea. He states he's never had any chest pain. He denies any palpitations. (Sathya Vargas) Objective Medications Current Medications Medications (Trade) Dose Ordered Sig/Smiley Route Start Time Stop Time Status Last Admin (Aspirin) 325 mg DAILY PO 07/07/17 09:00 07/07/17 08:45 (Diabeta) 2.5 mg DAILY@0800,1700 PO 07/07/17 08:00 (Glucophage) 500 mg BIDPC PO 07/07/17 09:00 07/07/17 17:46 (Flomax) 0.4 mg DAILY PO 07/07/17 09:00 07/07/17 08:46 (Lasix Inj) 20 mg BID@18 IV PUSH 07/07/17 09:00 07/07/17 17:47 (NS Flush) 2 ml UNSCH PRN IV FLUSH 07/06/17 19:00 (NS Flush) 2 ml BID IV FLUSH 07/06/17 21:00 07/07/17 21:30 (Tylenol) 650 mg Q4H PRN PO 07/06/17 19:00 (Narcan Inj) 0.4 mg UNSCH PRN IV PUSH 07/06/17 19:00 (Cristina-Colace) 1 tab BID PO 07/06/17 21:00 07/07/17 21:30 (Milk Of Magnesia Liq) 30 ml Q12H PRN PO 07/06/17 19:00 (Senokot) 17.2 mg Q12H PRN PO 07/06/17 19:00 (Dulcolax Supp) 10 mg DAILY PRN RECTAL 07/06/17 19:00 (Lactulose Liq) 30 ml DAILY PRN PO 07/06/17 19:00 Ceftriaxone Sodium 1000 mg/ Sodium Chloride 100 ml @ 200 mls/hr Q24H IV 07/07/17 17:00 07/07/17 17:47 Azithromycin 500 mg/Sodium Chloride 250 ml @ 250 mls/hr Q24H IV 07/07/17 18:00 07/07/17 17:58 (NovoLOG SUPPLEMENTAL SCALE) 1 ACHS SLIDING SCALE SQ 07/06/17 21:00 Patient Own Medication PT OWN MED: (Linagliptin (Tradjenta)... DAILY PO 07/07/17 09:00 (D50w (Vial) Inj) 50 ml UNSCH PRN IV PUSH 07/06/17 19:30 (Glucagon Inj) 1 mg UNSCH PRN OTHER 07/06/17 19:30 (KCl) 8 meq DAILY PO 07/08/17 09:00 (Restoril) 30 mg HS PRN PO 07/07/17 21:00 07/07/17 21:30 (Cardizem Cd) 240 mg DAILY PO 07/07/17 14:00 07/07/17 14:06 (Prinivil) 20 mg DAILY PO 07/08/17 09:00 Vital Signs / I&O Vital Signs Date Time Temp Pulse Resp B/P (MAP) Pulse Ox O2 Delivery O2 Flow Rate FiO2 07/08/17 04:00 97.8 79 20 146/69 (94) 92 07/08/17 00:00 97.4 81 18 162/61 (94) 94 07/07/17 20:00 96 Nasal Cannula 4.00 07/07/17 20:00 97.6 83 20 130/60 (83) 93 07/07/17 18:00 95.4 85 16 107/78 (88) 92 07/07/17 12:00 96.8 89 22 150/74 (99) 93 I/O 07/07/17 07/07/17 07/07/17 07/08/17 07/08/17 07/08/17 07:00 15:00 23:00 07:00 15:00 23:00 Intake Total 826 ml 480 ml Output Total 400 ml 300 ml 300 ml Balance -400 ml -300 ml 826 ml 180 ml Intake Oral 476 ml 480 ml IV Total 350 ml Output Urine Total 400 ml 300 ml 300 ml # Voids 5 # Bowel Movements 0 0 Physical Exam GENERAL: Well-developed well-nourished. In no acute distress. NECK: No carotid bruits. No JVD. CARDIOVASCULAR: Regular rate and rhythm. No murmur appreciated. RESPIRATORY: No accessory muscle use. Diminished breath sounds in all lung siu, no crackles. MUSCULOSKELETAL: No clubbing or cyanosis. Trace edema. NEUROLOGICAL: Awake and alert. Normal speech. Laboratory Laboratory Tests Test 07/08/17 05:25 Blood Urea Nitrogen 26 MG/DL Creatinine 1.00 MG/DL Random Glucose 70 MG/DL Calcium Level 9.2 MG/DL Sodium Level 142 MEQ/L Potassium Level 4.0 MEQ/L Chloride Level 103 MEQ/L Carbon Dioxide Level 35.3 MEQ/L Anion Gap 4 MEQ/L Estimat Glomerular Filtration Rate 72 ML/MIN B-Type Natriuretic Peptide 159 PG/ML Imaging Last Impressions Chest X-Ray 07/06/17 1707 Signed Impressions: Service Date/Time: Thursday, July 06, 2017 17:12 - CONCLUSION: Left greater than right patchy interstitial infiltrate. Viral or atypical pneumonia or early community acquired pneumonia are in the differential. Stephon Robert MD (Sathya Vargas) Assessment and Plan Assessment and Plan 77-year-old male with a past medical history of COPD on O2, DM, HTN, BPH who presented for shortness of breath. The patient had been having shortness of breath for the past 2 or 3 days. He has been having orthopnea. He denies any lower extremity swelling, cough, fever, chills. He denies any chest pain or palpitations. He denies any prior history of heart disease, CHF, or arrhythmia. He had an EKG done last week which showed frequent PACs, EKG and telemetry currently seem to show the same. He had a chest x-ray which showed pneumonia vs edema. He's received antibiotics and IV diuretics overnight and is feeling somewhat improved today. Frequent PACs: EKG and telemetry appear to be sinus rhythm with frequent PACs, not atrial fibrillation. maybe even polymorphic atrial tachycardia. Cardizem by mouth added. Acute systolic CHF exacerbation: Symptoms improved with IV diuresis. Cardiomyopathy: EF 25-30 %. Check Lexiscan. Dyspnea/COPD: Stable on home O2. Antibiotics per primary team. 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
[2017-07-08 09:35] LABS: CHOLESTEROL/ HDL RATIO 2.75 RATIO; HDL CHOLESTEROL 36.6 MG/DL (40.0-60.0)
--- NOTE | 2017-07-08 10:07 | HHI.PR ---
Subjective Remarks Patient breathing better ,bnp improved did have decrease glucose probably diet related will hold am diabetic meds and see if continues low based on accuchecks, cardiology feels more of atrail tach vs atrail fib started on cardiazem 240mg patient to have juanita scan today 2d echo low ef 25-30% on gumaro . Objective Vitals GENERAL: SKIN: Warm and dry. HEAD: Atraumatic. Normocephalic. EYES: Pupils equal and round. No scleral icterus. No injection or drainage. ENT: No nasal bleeding or discharge. Mucous membranes pink and moist. NECK: Trachea midline. No JVD. CARDIOVASCULAR: Irreg rate and rhythm. RESPIRATORY: No accessory muscle use. Clear to auscultation. Breath sounds equal bilaterally. GASTROINTESTINAL: Abdomen soft, non-tender, nondistended. Hepatic and splenic margins not palpable. MUSCULOSKELETAL: Extremities without clubbing, cyanosis, or edema. No obvious deformities. NEUROLOGICAL: Awake and alert. No obvious cranial nerve deficits. Motor grossly within normal limits. Five out of 5 muscle strength in the arms and legs. Normal speech. PSYCHIATRIC: Appropriate mood and affect; insight and judgment normal. Vital Signs Date Time Temp Pulse Resp B/P (MAP) Pulse Ox O2 Delivery O2 Flow Rate FiO2 07/08/17 09:58 91 Nasal Cannula 3.00 07/08/17 08:00 97.8 70 12 138/75 (96) 94 07/08/17 04:00 97.8 79 20 146/69 (94) 92 07/08/17 00:00 97.4 81 18 162/61 (94) 94 07/07/17 20:00 96 Nasal Cannula 4.00 07/07/17 20:00 97.6 83 20 130/60 (83) 93 07/07/17 18:00 95.4 85 16 107/78 (88) 92 07/07/17 12:00 96.8 89 22 150/74 (99) 93 07/08/17 07/08/17 07/09/17 15:00 23:00 07:00 Intake Total 180 ml Balance 180 ml Intake Oral 180 ml Result Diagram: 07/06/17 1700 07/08/17 0525 Imaging Last 24 hours Impressions Chest X-Ray 07/06/17 1702 Signed Impressions: Service Date/Time: Thursday, July 06, 2017 17:12 - CONCLUSION: Left greater than right patchy interstitial infiltrate. Viral or atypical pneumonia or early community acquired pneumonia are in the differential. Stephon Robert MD A/P Problem List: (1) Respiratory distress ICD Codes: R06.03 - Acute respiratory distress Status: Acute Plan: continue oxygen uses 2l at home at night will monitor oxygen saturations has improved to baseline (2) CHF (congestive heart failure) ICD Codes: I50.9 - Heart failure, unspecified Status: Acute Plan: will need 2d echo continue lasix IV follow labs consult cardiology BNP still elevated (3) Pneumonia ICD Codes: J18.9 - Pneumonia, unspecified organism Status: Acute Plan: continue rocephin and zithromax recheck chest xray today (4) Atrial fibrillation ICD Codes: I48.91 - Unspecified atrial fibrillation Status: Resolved Plan: cardiac evaluation more of atrail tach with extra beats schedule for juanita scan today on [id number] Assessment and Plan continue current plan possible discharge later today Problem Qualifiers (1) CHF (congestive heart failure): Qualified Codes: I50.9 - Heart failure, unspecified (2) Pneumonia: Qualified Codes: J18.9 - Pneumonia, unspecified organism (3) Atrial fibrillation: Qualified Codes: I48.91 - Unspecified atrial fibrillation John Lucas MD Jul 08, 2017 10:07
--- NOTE | 2017-07-08 14:28 | RADRPT ---
EXAM DATE/TIME: 07/08/2017 13:31 [place] COMPARISON: No previous studies available for comparison. INDICATIONS : Short of breath. MEDICAL HISTORY : Congestive heart failure. Hypertension Afib SURGICAL HISTORY : None. ENCOUNTER: Subsequent ACUITY: 3 days PAIN SCORE: 0/10 LOCATION: Bilateral chest FINDINGS: PA and lateral views of the chest demonstrate densities in the right lung base. Eventration right hem idiaphragm. Cardiomegaly with slight prominence of the interstitium. Osseous structures are intact. CONCLUSION: 1. Right basilar subsegmental atelectasis versus scarring. 2. Cardiomegaly with slight prominence of the interstitium could be interstitial edema/ CHF. Delta Shook MD on July 08, 2017 at 14:24 Board Certified Radiologist. This report was verified electronically.
[2017-07-08] MEDS: cefTRIAXone INJ 1,000 MG in SODIUM CHLORIDE 0.9% INJ 100 ML IV SCH (16:52)
[2017-07-08] MEDS: FUROSEMIDE 40 MG TAB PO SCH (16:53)
[2017-07-08] MEDS ORDERED: AZITHROMYCIN 250 MG TAB PO SCH (18:00)
[2017-07-08] MEDS: POTASSIUM CHLORIDE 8 MEQ CONTROLLED RELEASE TAB PO SCH (22:06)
[2017-07-08] MEDS: TEMAZEPAM 15 MG CAP PO PRN (22:06)
[2017-07-09] VITALS (8 sets, daily range): BP systolic 108–157; BP diastolic 51–71; PULSE 68–101; RESP 14–20; TEMP 96.4–97.4; O2SAT 90–97
--- NOTE | 2017-07-09 07:39 | PD.CARD.PN ---
Subjective Subjective Remarks Breathing is at baseline. No chest pain, palpitations, lightheadedness, or dizziness. The patient had a few short sinus pauses overnight on telemetry. (Sathya Vargas) Objective Medications Current Medications Medications (Trade) Dose Ordered Sig/Smiley Route Start Time Stop Time Status Last Admin (Aspirin) 325 mg DAILY PO 07/07/17 09:00 07/08/17 09:09 (Diabeta) 2.5 mg DAILY@0800,1700 PO 07/07/17 08:00 (Glucophage) 500 mg BIDPC PO 07/07/17 09:00 07/07/17 17:46 (Flomax) 0.4 mg DAILY PO 07/07/17 09:00 07/08/17 09:07 (NS Flush) 2 ml UNSCH PRN IV FLUSH 07/06/17 19:00 (NS Flush) 2 ml BID IV FLUSH 07/06/17 21:00 07/08/17 22:06 (Tylenol) 650 mg Q4H PRN PO 07/06/17 19:00 (Narcan Inj) 0.4 mg UNSCH PRN IV PUSH 07/06/17 19:00 (Cristina-Colace) 1 tab BID PO 07/06/17 21:00 07/08/17 22:06 (Milk Of Magnesia Liq) 30 ml Q12H PRN PO 07/06/17 19:00 (Senokot) 17.2 mg Q12H PRN PO 07/06/17 19:00 (Dulcolax Supp) 10 mg DAILY PRN RECTAL 07/06/17 19:00 (Lactulose Liq) 30 ml DAILY PRN PO 07/06/17 19:00 Ceftriaxone Sodium 1000 mg/ Sodium Chloride 100 ml @ 200 mls/hr Q24H IV 07/07/17 17:00 07/08/17 16:52 (NovoLOG SUPPLEMENTAL SCALE) 1 ACHS SLIDING SCALE SQ 07/06/17 21:00 07/08/17 16:53 Patient Own Medication PT OWN MED: (Linagliptin (Tradjenta)... DAILY PO 07/07/17 09:00 (D50w (Vial) Inj) 50 ml UNSCH PRN IV PUSH 07/06/17 19:30 (Glucagon Inj) 1 mg UNSCH PRN OTHER 07/06/17 19:30 (Restoril) 30 mg HS PRN PO 07/07/17 21:00 07/08/17 22:06 (Cardizem Cd) 240 mg DAILY PO 07/07/17 14:00 07/08/17 09:07 (Prinivil) 20 mg DAILY PO 07/08/17 09:00 07/08/17 09:08 (Lasix) 40 mg DAILY@0900,1800 PO 07/08/17 18:00 07/08/17 16:53 (KCl) 8 meq Q12HR PO 07/08/17 21:00 07/08/17 22:06 (Zithromax) 500 mg DAILY@1800 PO 07/08/17 18:00 07/08/17 16:53 Vital Signs / I&O Vital Signs Date Time Temp Pulse Resp B/P (MAP) Pulse Ox O2 Delivery O2 Flow Rate FiO2 07/09/17 04:25 97.4 68 18 108/51 (70) 94 07/09/17 03:20 3.00 07/09/17 00:00 96.4 84 20 114/56 (75) 90 07/08/17 20:15 85 07/08/17 20:00 96.9 81 20 132/59 (83) 93 07/08/17 16:00 96.2 64 12 128/85 (99) 94 07/08/17 12:00 99.0 63 14 150/60 (90) 92 07/08/17 09:58 91 Nasal Cannula 3.00 07/08/17 08:10 81 07/08/17 08:00 97.8 70 12 138/75 (96) 94 I/O 07/08/17 07/08/17 07/08/17 07/09/17 07/09/17 07/09/17 07:00 15:00 23:00 07:00 15:00 23:00 Intake Total 480 ml 180 ml 480 ml 640 ml Output Total 300 ml 300 ml Balance 180 ml 180 ml 180 ml 640 ml Intake Oral 480 ml 180 ml 480 ml 640 ml Output Urine Total 300 ml 300 ml # Voids 4 2 # Bowel Movements 1 0 Physical Exam GENERAL: Well-developed well-nourished. In no acute distress. NECK: No carotid bruits. No JVD. CARDIOVASCULAR: Regular rate and rhythm. No murmur appreciated. RESPIRATORY: No accessory muscle use. Improved aeration upon auscultation. Mild bibasilar crackles. MUSCULOSKELETAL: No clubbing or cyanosis. No edema. NEUROLOGICAL: Awake and alert. Normal speech. Imaging Last Impressions Chest X-Ray 07/08/17 0000 Signed Impressions: Service Date/Time: Saturday, July 08, 2017 13:31 - CONCLUSION: 1. Right basilar subsegmental atelectasis versus scarring. 2. Cardiomegaly with slight prominence of the interstitium could be interstitial edema/ CHF. Delta Shook MD (Sathya Vargas) Assessment and Plan Assessment and Plan 77-year-old male with a past medical history of COPD on O2, DM, HTN, BPH who presented for shortness of breath. The patient had been having shortness of breath for the past 2 or 3 days. He has been having orthopnea. He denies any lower extremity swelling, cough, fever, chills. He denies any chest pain or palpitations. He denies any prior history of heart disease, CHF, or arrhythmia. He had an EKG done last week which showed frequent PACs, EKG and telemetry currently seem to show the same. He had a chest x-ray which showed pneumonia vs edema. He's received antibiotics and IV diuretics overnight and is feeling somewhat improved today. Dysrhythmia: EKG and telemetry appear to be sinus rhythm with frequent PACs, not atrial fibrillation. Maybe even polymorphic atrial tachycardia. Cardizem was added, now with some sinus pauses, decrease Cardizem. Tachybradycardia? May need to get EP involved. Acute systolic CHF exacerbation: Symptoms improved, now on oral diuretics. Cardiomyopathy: EF 25-30 %. Check Lexiscan to rule out ischemia. NICOLE inhibitor. Dyspnea/COPD: Stable on home O2. Antibiotics per primary team. Discussed Condition With Discussed with Dr. Sam who plans to discuss with Dr. Lucas (Sathya Vargas) Assessment and Plan --------- abnormal SPECT need [facility] transfer to [facility] [place] [facility]. NPO p MN (Juan C Sam MD) Sathya Vargas Jul 09, 2017 07:39 Juan C Sam MD Jul 09, 2017 14:35
[2017-07-09] MEDS: glyBURIDE 2.5 MG TAB PO SCH ×2 (08:00→17:50)
[2017-07-09] MEDS: INSULIN ASPART SUPPLEMENTAL SCALE SQ SCH ×4 (08:00→21:00)
[2017-07-09] MEDS: metFORMIN HCL 500 MG TAB PO SCH ×2 (09:00→17:51)
[2017-07-09] MEDS ORDERED: FUROSEMIDE 40 MG TAB PO SCH (09:00)
[2017-07-09] MEDS ORDERED: REGADENOSON INJ 0.4 MG/5 ML SYR IV ONE (09:21)
[2017-07-09] MEDS: LISINOPRIL 20 MG TAB PO SCH (10:31)
[2017-07-09] MEDS: ASPIRIN 325 MG TAB PO SCH (10:31)
[2017-07-09] MEDS: DILTIAZEM-CD 120 MG CAP ER PO SCH (10:31)
[2017-07-09] MEDS: TAMSULOSIN HCL 0.4 MG CAP PO SCH (10:31)
[2017-07-09] MEDS: DOCUSATE SODIUM 50 MG/SENNA 8.6 MG TAB PO SCH ×2 (10:32→21:14)
[2017-07-09] MEDS: POTASSIUM CHLORIDE 8 MEQ CONTROLLED RELEASE TAB PO SCH ×2 (10:32→21:14)
[2017-07-09] MEDS: SODIUM CHLORIDE 0.9% FLUSH 10 ML FLUSH IV FLUSH SCH ×2 (10:32→21:15)
[2017-07-09] MEDS: FUROSEMIDE 40 MG TAB PO SCH ×2 (10:32→18:22)
--- NOTE | 2017-07-09 11:10 | RADRPT ---
EXAM DATE/TIME: 07/08/2017 13:03 [facility] COMPARISON: CHEST PA & LAT, July 08, 2017, 13:31. INDICATIONS : Congestive heart failure. DOSE: 30.2 mCi Tc99m Myoview at stress. 30 mCi Tc99m Myoview at rest. 0.4 mg Lexiscan STRESS SYMPTOMS: Short of breath. EJECTION FRACTION: 31% MEDICAL HISTORY : Hypertension. Diabetes mellitus type 2. Chronic obstructive pulmonary disease. SURGICAL HISTORY : Arm. ENCOUNTER: Initial ACUITY: 1 day PAIN SCALE: 0/10 LOCATION: Substernal chest TECHNIQUE: The patient underwent pharmacologic stress with infusion of prescribed dose. Continuous ECG tracing was monitored during stress. Gated SPECT imaging was performed after stress and conventional SPECT i maging was performed at rest. The examination was performed on a SPECT/CT scanner, both attenuation and non-corrected datasets were reviewed. FINDINGS: DISTRIBUTION: The maximum perfused segment at stress is in the anterior lateral wall. PERFUSION STUDY: There is a small to moderate size partially reversible apical and anterior inferior wall perfusion de fect. There is a some stress score of 5. GATED STUDY: There is akinesis involving the apex and inferior wall. There is a decreased calculated ejection frac tion 31%. CONCLUSION: 1. Small to moderate partially reversible apical and anterior inferior wall defect. This could repres ent john-infarct ischemia. 2. Abnormal ejection fraction of 31% with akinesis involving the apex and inferior wall. RISK CATEGORY: High (>3% Annual Mortality Rate) Anderson Foote MD on July 09, 2017 at 11:02 Board Certified Radiologist. This report was verified electronically.
--- NOTE | 2017-07-09 13:49 | HHI.PR ---
Subjective Remarks Patient breathing better and bnp normalized on Lasix bid ,was started on cardiazem 240 by cardiology for atrial arrhythmia by had some hypotension and was reduced to 120mg ,had myocardial perfusion scan completed today and shows small to moderate partially reversible apical and anterior inferior wall defect. Could represent john-infarct ischemia EF% 31% with akinesis apex and inferior wall. Discussed with Dr. Sam will need transfer to main hospital for cardiac cath. Objective Vitals GENERAL: SKIN: Warm and dry. HEAD: Atraumatic. Normocephalic. EYES: Pupils equal and round. No scleral icterus. No injection or drainage. ENT: No nasal bleeding or discharge. Mucous membranes pink and moist. NECK: Trachea midline. No JVD. CARDIOVASCULAR: IRRegular rate and rhythm. RESPIRATORY: No accessory muscle use. Clear to auscultation. Breath sounds equal bilaterally. GASTROINTESTINAL: Abdomen soft, non-tender, nondistended. Hepatic and splenic margins not palpable. MUSCULOSKELETAL: Extremities without clubbing, cyanosis, or edema. No obvious deformities. NEUROLOGICAL: Awake and alert. No obvious cranial nerve deficits. Motor grossly within normal limits. Five out of 5 muscle strength in the arms and legs. Normal speech. PSYCHIATRIC: Appropriate mood and affect; insight and judgment normal. Vital Signs Date Time Temp Pulse Resp B/P (MAP) Pulse Ox O2 Delivery O2 Flow Rate FiO2 07/09/17 12:00 96.9 89 14 134/65 (88) 94 07/09/17 08:00 97 Nasal Cannula 3.00 07/09/17 08:00 96.8 83 16 157/71 (99) 92 07/09/17 08:00 71 07/09/17 04:25 97.4 68 18 108/51 (70) 94 07/09/17 03:20 3.00 07/09/17 00:00 96.4 84 20 114/56 (75) 90 07/08/17 20:15 85 07/08/17 20:00 96.9 81 20 132/59 (83) 93 07/08/17 16:00 96.2 64 12 128/85 (99) 94 Result Diagram: 07/06/17 1700 07/08/17 0525 Imaging Last 24 hours Impressions Chest X-Ray 07/06/17 1703 Signed Impressions: Service Date/Time: Thursday, July 06, 2017 17:12 - CONCLUSION: Left greater than right patchy interstitial infiltrate. Viral or atypical pneumonia or early community acquired pneumonia are in the differential. Stephon Robert MD A/P Problem List: (1) Respiratory distress ICD Codes: R06.03 - Acute respiratory distress Status: Acute Plan: continue oxygen uses 2l at home at night will monitor oxygen saturations has improved to baseline (2) CHF (congestive heart failure) ICD Codes: I50.9 - Heart failure, unspecified Status: Acute Plan: will need 2d echo consistent with low EF 30% on gumaro ,had myocardial perfusion scan shows anterior and inferior wall defect with possible john- infarct ischemia and will need transfer to [facility] for cardiac cath. (3) Pneumonia ICD Codes: J18.9 - Pneumonia, unspecified organism Status: Acute Plan: chest xray more consistent with CHF will stop antibiotics (4) Atrial fibrillation ICD Codes: I48.91 - Unspecified atrial fibrillation Status: Resolved Plan: cardiac evaluation more of atrail tach with extra beats was on cardiazem 240 but reduced to 120 as had low blood pressure also abnormal dejuan scan as above will need cardiac cath. Assessment and Plan plan now is to transfer to main hospital Problem Qualifiers (1) CHF (congestive heart failure): Qualified Codes: I50.9 - Heart failure, unspecified (2) Pneumonia: Qualified Codes: J18.9 - Pneumonia, unspecified organism (3) Atrial fibrillation: Qualified Codes: I48.91 - Unspecified atrial fibrillation John Lucas MD Jul 09, 2017 13:49
[2017-07-09] MEDS: PATIENT OWN: (Linagliptin (Tradjenta) 5 MG) PO SCH (14:30)
[2017-07-09] MEDS: TEMAZEPAM 15 MG CAP PO PRN (21:15)
[2017-07-10] VITALS (16 sets, daily range): BP systolic 122–151; BP diastolic 56–79; PULSE 76–133; RESP 20–24; TEMP 97.2–98.7; O2SAT 92–95
[2017-07-10] MEDS: INSULIN ASPART SUPPLEMENTAL SCALE SQ SCH ×4 (05:44→21:07)
[2017-07-10] MEDS: glyBURIDE 2.5 MG TAB PO SCH ×2 (08:00→17:58)
[2017-07-10] MEDS: PATIENT OWN: (Linagliptin (Tradjenta) 5 MG) PO SCH (09:00)
[2017-07-10] MEDS: DILTIAZEM-CD 120 MG CAP ER PO SCH (11:45)
[2017-07-10] MEDS: FUROSEMIDE 40 MG TAB PO SCH (11:46)
[2017-07-10] MEDS: POTASSIUM CHLORIDE 8 MEQ CONTROLLED RELEASE TAB PO SCH ×2 (11:46→20:45)
[2017-07-10] MEDS: SODIUM CHLORIDE 0.9% FLUSH 10 ML FLUSH IV FLUSH SCH ×2 (11:47→20:46)
[2017-07-10] MEDS: DOCUSATE SODIUM 50 MG/SENNA 8.6 MG TAB PO SCH ×2 (11:47→20:46)
[2017-07-10] MEDS: ASPIRIN 325 MG TAB PO SCH (11:47)
[2017-07-10] MEDS: metFORMIN HCL 500 MG TAB PO SCH ×2 (11:47→17:58)
[2017-07-10] MEDS: TAMSULOSIN HCL 0.4 MG CAP PO SCH (11:47)
[2017-07-10] MEDS: LISINOPRIL 20 MG TAB PO SCH (11:47)
[2017-07-10] MEDS ORDERED: FUROSEMIDE 40 MG/4 ML VIAL IV PUSH ONE (12:30)
[2017-07-10] MEDS ORDERED: FUROSEMIDE 40 MG/4 ML VIAL IV PUSH SCH (18:00)
--- NOTE | 2017-07-10 18:32 | HHI.PR ---
Subjective Remarks Patient was to have cardiac cath today but patient had some increased SOB and was started back on IV lasix which did help breathing and cath will be scheduled for am. Objective Vitals GENERAL: SKIN: Warm and dry. HEAD: Atraumatic. Normocephalic. EYES: Pupils equal and round. No scleral icterus. No injection or drainage. ENT: No nasal bleeding or discharge. Mucous membranes pink and moist. NECK: Trachea midline. No JVD. CARDIOVASCULAR: Regular rate and rhythm. RESPIRATORY: No accessory muscle use. Clear to auscultation. Breath sounds minimally decreased GASTROINTESTINAL: Abdomen soft, non-tender, nondistended. Hepatic and splenic margins not palpable. MUSCULOSKELETAL: Extremities without clubbing, cyanosis, or edema. No obvious deformities. NEUROLOGICAL: Awake and alert. No obvious cranial nerve deficits. Motor grossly within normal limits. Five out of 5 muscle strength in the arms and legs. Normal speech. PSYCHIATRIC: Appropriate mood and affect; insight and judgment normal. Vital Signs Date Time Temp Pulse Resp B/P (MAP) Pulse Ox O2 Delivery O2 Flow Rate FiO2 07/10/17 18:00 79 07/10/17 17:00 97 07/10/17 16:00 76 07/10/17 15:23 98.7 85 20 138/56 (83) 93 07/10/17 15:00 85 07/10/17 14:00 86 07/10/17 13:00 93 07/10/17 11:06 98.2 81 20 142/74 (96) 93 07/10/17 11:00 88 07/10/17 08:00 97.2 88 20 131/79 (96) 92 07/10/17 04:41 97.7 83 20 151/79 (103) 92 07/09/17 21:29 94 Nasal Cannula 3.00 07/09/17 20:00 96.6 79 20 117/69 (85) 94 07/10/17 07/10/17 07/11/17 15:00 23:00 07:00 Intake Total 840 ml Output Total 1250 ml Balance -410 ml Intake Oral 840 ml Output Urine Total 1250 ml # Voids 1 Result Diagram: 07/06/17 1700 07/08/17 0525 Imaging Last 24 hours Impressions Chest X-Ray 07/06/17 170 Signed Impressions: Service Date/Time: Thursday, July 06, 2017 17:12 - CONCLUSION: Left greater than right patchy interstitial infiltrate. Viral or atypical pneumonia or early community acquired pneumonia are in the differential. Stephon Robert MD A/P Problem List: (1) Respiratory distress ICD Codes: R06.03 - Acute respiratory distress Status: Acute Plan: continue oxygen uses 2l at home at night will monitor oxygen saturations has improved to baseline (2) CHF (congestive heart failure) ICD Codes: I50.9 - Heart failure, unspecified Status: Acute Plan: 2d echo consistent with low EF 30% on gumaro ,had myocardial perfusion scan shows anterior and inferior wall defect with possible john-infarct ischemia and will need transfer to main hospital for cardiac cath. Cath held until tomorrow as patient had increased SOB and was started back on IV lasix (3) Pneumonia ICD Codes: J18.9 - Pneumonia, unspecified organism Status: Acute Plan: chest xray more consistent with CHF will stop antibiotics (4) Atrial fibrillation ICD Codes: I48.91 - Unspecified atrial fibrillation Status: Resolved Plan: cardiac evaluation more of atrail tach with extra beats was on cardiazem 240 but reduced to 120 as had low blood pressure also abnormal dejuan scan as above will need cardiac cath. Assessment and Plan CATH in am Problem Qualifiers (1) CHF (congestive heart failure): Qualified Codes: I50.9 - Heart failure, unspecified (2) Pneumonia: Qualified Codes: J18.9 - Pneumonia, unspecified organism (3) Atrial fibrillation: Qualified Codes: I48.91 - Unspecified atrial fibrillation John Lucas MD Jul 10, 2017 18:32
[2017-07-10] MEDS: LACTULOSE SYRUP 20 GM/30 ML CUP PO PRN (20:46)
[2017-07-10] MEDS: TEMAZEPAM 15 MG CAP PO PRN (21:35)
[2017-07-10] MEDS: MORPHINE SULFATE 2 MG/ML INJ IV PRN (23:24)
--- NOTE | 2017-07-10 23:43 | RADRPT ---
EXAM DATE/TIME: 07/10/2017 23:17 [facility] COMPARISON: CHEST SINGLE AP, July 06, 2017, 17:12. INDICATIONS : Shortness of breath. MEDICAL HISTORY : Congestive heart failure. Hypertension. A-fib SURGICAL HISTORY : None. ENCOUNTER: Subsequent ACUITY: 4 - 6 days PAIN SCORE: Non-responsive. LOCATION: chest FINDINGS: There is platelike atelectasis at the right base. There is cardiomegaly. Left lung is clear. Osseous structures are intact. CONCLUSION: Right basilar atelectasis. Ramon Alamraz MD on July 10, 2017 at 23:40 Board Certified Radiologist. This report was verified electronically.
[2017-07-11] VITALS (28 sets, daily range): BP systolic 99–133; BP diastolic 57–96; PULSE 73–110; RESP 18–24; TEMP 97.3–98.8; O2SAT 91–94
--- NOTE | 2017-07-11 00:44 | HHI.PR ---
Subjective Remarks Called in to see patient with pain in penile area after catherization ,patient feels like he has to urinate bladder scan shows no significant urine in bladder and he is very anxious . We gave him morphine for pain and will add pyridium and i obtained chest xray which showed no evidence of CHF . I will continue pyridium for tomorrow and hopefully after cath the henriquez can be D/C. I will send of urine culture and order cbc and bmp for am. Objective Vitals GENERAL: pain in penile area SKIN: Warm and dry. HEAD: Atraumatic. Normocephalic. EYES: Pupils equal and round. No scleral icterus. No injection or drainage. ENT: No nasal bleeding or discharge. Mucous membranes pink and moist. NECK: Trachea midline. No JVD. CARDIOVASCULAR: Regular rate and rhythm. RESPIRATORY: No accessory muscle use. Clear to auscultation. Breath sounds equal bilaterally. GASTROINTESTINAL: Abdomen soft, non-tender, nondistended. Hepatic and splenic margins not palpable. MUSCULOSKELETAL: Extremities without clubbing, cyanosis, or edema. No obvious deformities. NEUROLOGICAL: Awake and alert. No obvious cranial nerve deficits. Motor grossly within normal limits. Five out of 5 muscle strength in the arms and legs. Normal speech. PSYCHIATRIC: Appropriate mood and affect; insight and judgment normal. Vital Signs Date Time Temp Pulse Resp B/P (MAP) Pulse Ox O2 Delivery O2 Flow Rate FiO2 07/10/17 23:29 24 07/10/17 18:00 79 07/10/17 17:00 97 07/10/17 16:00 76 07/10/17 15:23 98.7 85 20 138/56 (83) 93 07/10/17 15:00 85 07/10/17 14:00 86 07/10/17 13:00 93 07/10/17 11:06 98.2 81 20 142/74 (96) 93 07/10/17 11:00 88 07/10/17 08:00 97.2 88 20 131/79 (96) 92 07/10/17 04:41 97.7 83 20 151/79 (103) 92 Result Diagram: 07/08/17 0525 Imaging Last 24 hours Impressions Chest X-Ray 07/06/17 6567 Signed Impressions: Service Date/Time: Thursday, July 06, 2017 17:12 - CONCLUSION: Left greater than right patchy interstitial infiltrate. Viral or atypical pneumonia or early community acquired pneumonia are in the differential. Stephon Robert MD A/P Problem List: (1) Respiratory distress ICD Codes: R06.03 - Acute respiratory distress Status: Acute Plan: continue oxygen uses 2l at home at night will monitor oxygen saturations has improved to baseline (2) CHF (congestive heart failure) ICD Codes: I50.9 - Heart failure, unspecified Status: Acute Plan: 2d echo consistent with low EF 30% on gumaro ,had myocardial perfusion scan shows anterior and inferior wall defect with possible john-infarct ischemia and will need transfer to [facility] for cardiac cath. Cath held until tomorrow as patient had increased SOB and was started back on IV lasix repat chest xray shows no evidence of CHF (3) Pneumonia ICD Codes: J18.9 - Pneumonia, unspecified organism Status: Acute Plan: chest xray more consistent with CHF will stop antibiotics (4) Atrial fibrillation ICD Codes: I48.91 - Unspecified atrial fibrillation Status: Resolved Plan: cardiac evaluation more of atrail tach with extra beats was on cardiazem 240 but reduced to 120 as had low blood pressure also abnormal dejuan scan as above will need cardiac cath. Assessment and Plan CATH in am,for tonight continue morphine prn and added pyridium Problem Qualifiers (1) CHF (congestive heart failure): Qualified Codes: I50.9 - Heart failure, unspecified (2) Pneumonia: Qualified Codes: J18.9 - Pneumonia, unspecified organism (3) Atrial fibrillation: Qualified Codes: I48.91 - Unspecified atrial fibrillation John Lucas MD Jul 11, 2017 00:43
[2017-07-11] MEDS ORDERED: PHENAZOPYRIDINE HCL 100 MG TAB PO ONE (00:45)
[2017-07-11 04:52] LABS: AUTOMATED NEUTROPHIL # 15.5 TH/MM3 (1.8-7.7); BASOPHIL % 0.2 % (0.0-2.0); EOSINOPHIL % 0.1 % (0.0-4.0); HEMATOCRIT 42.2 % (39.0-51.0); HEMOGLOBIN 13.9 GM/DL (13.0-17.0); LYMPH % 4.8 % (9.0-44.0); LYMPHOCYTE # 0.9 TH/MM3 (1.0-4.8); MEAN CELL VOLUME 94.6 FL (80.0-100.0); MEAN CORPUSCULAR HEMOGLOBIN 31.2 PG (27.0-34.0); MONOCYTE # 1.6 TH/MM3 (0-0.9); NEUT % 85.9 % (16.0-70.0); PLATELET COUNT 319 TH/MM3 (150-450); RED BLOOD COUNT 4.47 MIL/MM3 (4.50-5.90); RED CELL DISTRIBUTION WIDTH 14.7 % (11.6-17.2)
[2017-07-11 05:16] LABS: BICARBONATE 30.5 MEQ/L (21.0-32.0); CALCIUM 9.8 MG/DL (8.5-10.1)
[2017-07-11 05:17] LABS: CREATININE 1.62 MG/DL (0.60-1.30)
[2017-07-11] MEDS: PHENAZOPYRIDINE HCL 100 MG TAB PO SCH ×3 (05:29→22:00)
[2017-07-11] MEDS: MORPHINE SULFATE 2 MG/ML INJ IV PRN ×2 (07:43→14:11)
[2017-07-11] MEDS: SODIUM CHLORIDE 0.9% FLUSH 10 ML FLUSH IV FLUSH SCH ×2 (07:43→20:48)
[2017-07-11] MEDS ORDERED: LISINOPRIL 20 MG TAB PO SCH (09:00)
[2017-07-11] MEDS: FUROSEMIDE 40 MG/4 ML VIAL IV PUSH SCH ×2 (09:00→17:53)
[2017-07-11] MEDS: DOCUSATE SODIUM 50 MG/SENNA 8.6 MG TAB PO SCH ×2 (09:01→20:48)
[2017-07-11] MEDS: POTASSIUM CHLORIDE 8 MEQ CONTROLLED RELEASE TAB PO SCH ×2 (09:01→20:48)
[2017-07-11] MEDS: TAMSULOSIN HCL 0.4 MG CAP PO SCH (09:01)
[2017-07-11] MEDS: DILTIAZEM-CD 120 MG CAP ER PO SCH (09:01)
[2017-07-11] MEDS: ASPIRIN 325 MG TAB PO SCH (09:01)
[2017-07-11] MEDS: metFORMIN HCL 500 MG TAB PO SCH ×2 (09:01→17:53)
--- NOTE | 2017-07-11 09:01 | PD.CARD.PN ---
Subjective Subjective Remarks SOB slightly improved henriquez pulled out last night + pain + hematuria Objective Medications Current Medications Medications (Trade) Dose Ordered Sig/Smiley Route Start Time Stop Time Status Last Admin (Aspirin) 325 mg DAILY PO 07/07/17 09:00 07/10/17 11:47 (Diabeta) 2.5 mg DAILY@0800,1700 PO 07/07/17 08:00 07/10/17 17:58 (Glucophage) 500 mg BIDPC PO 07/07/17 09:00 07/10/17 17:58 (Flomax) 0.4 mg DAILY PO 07/07/17 09:00 07/10/17 11:47 (NS Flush) 2 ml UNSCH PRN IV FLUSH 07/06/17 19:00 07/10/17 23:24 (NS Flush) 2 ml BID IV FLUSH 07/06/17 21:00 07/11/17 07:43 (Tylenol) 650 mg Q4H PRN PO 07/06/17 19:00 (Narcan Inj) 0.4 mg UNSCH PRN IV PUSH 07/06/17 19:00 (Cristina-Colace) 1 tab BID PO 07/06/17 21:00 07/10/17 20:46 (Milk Of Magnesia Liq) 30 ml Q12H PRN PO 07/06/17 19:00 (Senokot) 17.2 mg Q12H PRN PO 07/06/17 19:00 07/10/17 20:45 (Dulcolax Supp) 10 mg DAILY PRN RECTAL 07/06/17 19:00 (Lactulose Liq) 30 ml DAILY PRN PO 07/06/17 19:00 07/10/17 20:46 (NovoLOG SUPPLEMENTAL SCALE) 1 ACHS SLIDING SCALE SQ 07/06/17 21:00 07/10/17 21:07 Patient Own Medication PT OWN MED: (Linagliptin (Tradjenta)... DAILY PO 07/07/17 09:00 07/10/17 09:00 (D50w (Vial) Inj) 50 ml UNSCH PRN IV PUSH 07/06/17 19:30 (Glucagon Inj) 1 mg UNSCH PRN OTHER 07/06/17 19:30 (Restoril) 30 mg HS PRN PO 07/07/17 21:00 07/10/17 21:35 (KCl) 8 meq Q12HR PO 07/08/17 21:00 07/10/17 20:45 (Cardizem Cd) 120 mg DAILY PO 07/09/17 09:00 07/10/17 11:45 (Morphine Inj) 4 mg Q8H PRN IV 07/10/17 23:30 07/11/17 07:43 (Pyridium) 100 mg Q8HR PO 07/11/17 06:00 07/11/17 05:29 (Lasix Inj) 20 mg BID@18 IV PUSH 07/11/17 09:00 Vital Signs / I&O Vital Signs Date Time Temp Pulse Resp B/P (MAP) Pulse Ox O2 Delivery O2 Flow Rate FiO2 07/11/17 08:34 Nasal Cannula 2.00 07/11/17 07:30 98.3 90 20 109/58 (75) 93 07/11/17 07:30 90 07/11/17 06:00 92 07/11/17 05:00 84 07/11/17 03:58 98.0 90 24 116/89 (98) 94 07/11/17 03:41 93 07/11/17 03:00 110 07/11/17 02:00 84 07/11/17 01:00 90 07/11/17 00:00 92 07/11/17 00:00 97.3 81 24 122/96 (105) 93 07/10/17 23:29 24 07/10/17 23:00 108 07/10/17 22:00 96 07/10/17 21:00 133 07/10/17 20:00 96 07/10/17 19:00 97.3 94 24 122/74 (90) 95 07/10/17 19:00 95 07/10/17 18:00 79 07/10/17 17:00 97 07/10/17 16:00 76 07/10/17 15:23 98.7 85 20 138/56 (83) 93 07/10/17 15:00 85 07/10/17 14:00 86 07/10/17 13:00 93 07/10/17 11:06 98.2 81 20 142/74 (96) 93 07/10/17 11:00 88 I/O 07/10/17 07/10/17 07/10/17 07/11/17/2/18 2/2/18 07:00 15:00 23:00 07:00 15:00 23:00 Intake Total 840 ml 240 ml Output Total 1250 ml 310 ml Balance -410 ml -70 ml Intake Oral 840 ml 240 ml Output Urine Total 1250 ml 310 ml Emesis 0 ml # Voids 1 # Bowel Movements 0 Physical Exam NECK: Supple, trachea midline. + JVD CARDIOVASCULAR: Regular rate and rhythm without murmurs, gallops, or rubs. RESPIRATORY: Breath sounds equal bilaterally. +bibasilar crackles GASTROINTESTINAL: Abdomen soft, non-tender, nondistended. MUSCULOSKELETAL: No cyanosis, trace edema. Laboratory Laboratory Tests Test 07/11/17 04:05 White Blood Count 18.0 TH/MM3 Red Blood Count 4.47 MIL/MM3 Hemoglobin 13.9 GM/DL Hematocrit 42.2 % Mean Corpuscular Volume 94.6 FL Mean Corpuscular Hemoglobin 31.2 PG Mean Corpuscular Hemoglobin Concent 33.0 % Red Cell Distribution Width 14.7 % Platelet Count 319 TH/MM3 Mean Platelet Volume 9.0 FL Neutrophils (%) (Auto) 85.9 % Lymphocytes (%) (Auto) 4.8 % Monocytes (%) (Auto) 9.0 % Eosinophils (%) (Auto) 0.1 % Basophils (%) (Auto) 0.2 % Neutrophils # (Auto) 15.5 TH/MM3 Lymphocytes # (Auto) 0.9 TH/MM3 Monocytes # (Auto) 1.6 TH/MM3 Eosinophils # (Auto) 0.0 TH/MM3 Basophils # (Auto) 0.0 TH/MM3 CBC Comment DIFF FINAL Differential Comment Blood Urea Nitrogen 31 MG/DL Creatinine 1.62 MG/DL Random Glucose 202 MG/DL Calcium Level 9.8 MG/DL Sodium Level 137 MEQ/L Potassium Level 3.7 MEQ/L Chloride Level 99 MEQ/L Carbon Dioxide Level 30.5 MEQ/L Anion Gap 8 MEQ/L Estimat Glomerular Filtration Rate 42 ML/MIN Assessment and Plan Assessment and Plan --------- abnormal SPECT -mild-mod ischemia. no CP no EKG changes. suspect related to cardiomyopathy. cancel LHC today Cr elevated. + hematuria - urology hold ACEi due to Cr decrease Lasix due to Cr. monitor I/O's given circumstances, had discussion with patient. May decide to not do LHC this hospitalization. Allow recovery of Cr and hematuria to resolve. Can discuss outpatient LHC. will see how weekend goes. Juan C Sam MD Jul 11, 2017 09:01
[2017-07-11] MEDS: PATIENT OWN: (Linagliptin (Tradjenta) 5 MG) PO SCH (09:02)
[2017-07-11] MEDS: INSULIN ASPART SUPPLEMENTAL SCALE SQ SCH ×3 (09:11→20:48)
[2017-07-11] MEDS: glyBURIDE 2.5 MG TAB PO SCH ×2 (09:12→17:54)
--- NOTE | 2017-07-11 13:17 | PD.CONS ---
HPI Service Urology Consult Requested By Reason for Consult Henriquez, Hematuria Primary Care Physician Torin Ventura MD Diagnosis: (1) Respiratory distress ICD Code: R06.03 - Acute respiratory distress (2) CHF (congestive heart failure) ICD Code: I50.9 - Heart failure, unspecified (3) Pneumonia ICD Code: J18.9 - Pneumonia, unspecified organism (4) Atrial fibrillation ICD Code: I48.91 - Unspecified atrial fibrillation History of Present Illness 77yo male with history of COPD, HTN, DM admitted with shortness of breath planned to under go cardiac procedure seen in consultation for henriquez catheter, hematuria. Patient reports no lower urinary tract symptoms prior to hospitlaization. Patient is currently on flomax. He had a catheter placed upon admit however this was pulled out by accident by the patient. Patient states the catheter is very painful. He is on Pyridium. No fevers. He reports voiding well and emptying well prior to catheter placement. Review of Systems ROS Limitations: Clinical Condition Constitutional: DENIES: Fever Endocrine: DENIES: Heat/cold intolerance Eyes: DENIES: Diplopia Ears, nose, mouth, throat: DENIES: Hearing loss Respiratory: COMPLAINS OF: Shortness of breath Cardiovascular: DENIES: Chest pain Gastrointestinal: DENIES: Abdominal pain Genitourinary: COMPLAINS OF: Hematuria Musculoskeletal: DENIES: Joint pain, Back pain Neurologic: DENIES: Headache Psychiatric: DENIES: Anxiety Except as stated in HPI: all other systems reviewed are Neg Past Family Social History Past Medical History sleep apnea,CHF new onset afib,copd cva diverticulosis Past Surgical History fx arm and hand Reported Medications Reported Meds & Active Scripts Active Reported Lasix (Furosemide) 20 Mg Tab 20 Mg PO DAILY Hydrochlorothiazide 12.5 Mg Cap 0 PO DAILY Aspirin 325 Mg Tab 325 Mg PO DAILY Tradjenta (Linagliptin) 5 Mg Tab 5 Mg PO DAILY Flomax (Tamsulosin HCl) 0.4 Mg Cap 0 PO DAILY Metformin (Metformin HCl) 500 Mg Tab 0 PO BIDPC Glyburide 2.5 Mg Tab 0 PO BID Take with meals at the same time each day Lisinopril 5 Mg Tab 0 PO DAILY Allergies: Coded Allergies: No Known Allergies (Verified Allergy, Unknown, 07/06/17) Active Ordered Medications Current Medications Medications (Trade) Dose Ordered Sig/Smiley Route Start Time Stop Time Status Last Admin (Aspirin) 325 mg DAILY PO 07/07/17 09:00 07/11/17 09:01 (Diabeta) 2.5 mg DAILY@0800,1700 PO 07/07/17 08:00 07/11/17 09:12 (Glucophage) 500 mg BIDPC PO 07/07/17 09:00 07/11/17 09:01 (Flomax) 0.4 mg DAILY PO 07/07/17 09:00 07/11/17 09:01 (NS Flush) 2 ml UNSCH PRN IV FLUSH 07/06/17 19:00 07/10/17 23:24 (NS Flush) 2 ml BID IV FLUSH 07/06/17 21:00 07/11/17 07:43 (Tylenol) 650 mg Q4H PRN PO 07/06/17 19:00 (Narcan Inj) 0.4 mg UNSCH PRN IV PUSH 07/06/17 19:00 (Cristina-Colace) 1 tab BID PO 07/06/17 21:00 07/11/17 09:01 (Milk Of Magnesia Liq) 30 ml Q12H PRN PO 07/06/17 19:00 (Senokot) 17.2 mg Q12H PRN PO 07/06/17 19:00 07/10/17 20:45 (Dulcolax Supp) 10 mg DAILY PRN RECTAL 07/06/17 19:00 (Lactulose Liq) 30 ml DAILY PRN PO 07/06/17 19:00 07/10/17 20:46 (NovoLOG SUPPLEMENTAL SCALE) 1 ACHS SLIDING SCALE SQ 07/06/17 21:00 07/11/17 09:11 Patient Own Medication PT OWN MED: (Linagliptin (Tradjenta)... DAILY PO 07/07/17 09:00 07/11/17 09:02 (D50w (Vial) Inj) 50 ml UNSCH PRN IV PUSH 07/06/17 19:30 (Glucagon Inj) 1 mg UNSCH PRN OTHER 07/06/17 19:30 (Restoril) 30 mg HS PRN PO 07/07/17 21:00 07/10/17 21:35 (KCl) 8 meq Q12HR PO 07/08/17 21:00 07/11/17 09:01 (Cardizem Cd) 120 mg DAILY PO 07/09/17 09:00 07/11/17 09:01 (Morphine Inj) 4 mg Q8H PRN IV 07/10/17 23:30 07/11/17 07:43 (Pyridium) 100 mg Q8HR PO 07/11/17 06:00 07/11/17 05:29 (Lasix Inj) 20 mg BID@09,18 IV PUSH 07/11/17 09:00 07/11/17 09:00 Family History Family history reviewed and noncontributory to present illness Social History former heavy smoker none over 8 years rare etoh Physical Exam Vital Signs Date Time Temp Pulse Resp B/P (MAP) Pulse Ox O2 Delivery O2 Flow Rate FiO2 07/11/17 08:34 Nasal Cannula 2.00 07/11/17 07:30 98.3 90 20 109/58 (75) 93 07/11/17 07:30 90 07/11/17 06:00 92 07/11/17 05:00 84 07/11/17 03:58 98.0 90 24 116/89 (98) 94 07/11/17 03:41 93 07/11/17 03:00 110 07/11/17 02:00 84 07/11/17 01:00 90 07/11/17 00:00 92 07/11/17 00:00 97.3 81 24 122/96 (105) 93 07/10/17 23:29 24 07/10/17 23:00 108 07/10/17 22:00 96 07/10/17 21:00 133 07/10/17 20:00 96 07/10/17 19:00 97.3 94 24 122/74 (90) 95 07/10/17 19:00 95 07/10/17 18:00 79 07/10/17 17:00 97 07/10/17 16:00 76 07/10/17 15:23 98.7 85 20 138/56 (83) 93 07/10/17 15:00 85 07/10/17 14:00 86 Physical Exam GENERAL: This is a well-nourished, well-developed patient, in no apparent distress. SKIN: No rashes, ecchymoses or lesions. Cool and dry. HEAD: Atraumatic. Normocephalic. EYES: Extraocular motions intact. No scleral icterus. No injection or drainage. ENT: Nose without bleeding, purulent drainage. Airway patent. NECK: Trachea midline. No JVD or lymphadenopathy. CARDIOVASCULAR: Normal pulses RESPIRATORY: Nasal cannula O2 GASTROINTESTINAL: Abdomen soft, non-tender, nondistended. GENITOURINARY: Uncircumcised phallus, bilateral descended testis; 12Fr henriquez catheter in place. Ruffin tinge urine, consistent with pyridium MUSCULOSKELETAL: Extremities without clubbing, cyanosis, or edema. Right UE deformity noted NEUROLOGICAL: Awake and alert. Motor and sensory grossly within normal limits. Normal speech. Lab results reviewed: Yes Laboratory Tests Test 07/11/17 04:05 White Blood Count 18.0 Red Blood Count 4.47 Hemoglobin 13.9 Hematocrit 42.2 Mean Corpuscular Volume 94.6 Mean Corpuscular Hemoglobin 31.2 Mean Corpuscular Hemoglobin Concent 33.0 Red Cell Distribution Width 14.7 Platelet Count 319 Mean Platelet Volume 9.0 Neutrophils (%) (Auto) 85.9 Lymphocytes (%) (Auto) 4.8 Monocytes (%) (Auto) 9.0 Eosinophils (%) (Auto) 0.1 Basophils (%) (Auto) 0.2 Neutrophils # (Auto) 15.5 Lymphocytes # (Auto) 0.9 Monocytes # (Auto) 1.6 Eosinophils # (Auto) 0.0 Basophils # (Auto) 0.0 CBC Comment DIFF FINAL Differential Comment Blood Urea Nitrogen 31 Creatinine 1.62 Random Glucose 202 Calcium Level 9.8 Sodium Level 137 Potassium Level 3.7 Chloride Level 99 Carbon Dioxide Level 30.5 Anion Gap 8 Estimat Glomerular Filtration Rate 42 Date/Time Source Procedure Growth Status 07/06/17 18:05 Blood Peripheral Aerobic Blood Culture - Final NO GROWTH IN 5 DAYS Complete 07/06/17 18:05 Blood Peripheral Anaerobic Blood Culture - Final NO GROWTH IN 5 DAYS Complete 07/11/17 03:12 Urine Catheterized Urine Urine Culture Pending Received Result Diagram: 07/11/17 0405 07/11/17 0405 Personally reviewed images: Yes Imaging Last Impressions Chest X-Ray 07/10/17 0000 Signed Impressions: Service Date/Time: July 23:17 - CONCLUSION: Right basilar atelectasis. Ramon Almaraz MD Myocardial Perfusion Scan Nuc Med 07/08/17 0000 Signed Impressions: Service Date/Time: Saturday, July 08, 2017 13:03 - CONCLUSION: 1. Small to moderate partially reversible apical and anterior inferior wall defect. This could represent cristina-infarct ischemia. 2. Abnormal ejection fraction of 31%% with akinesis involving the apex and inferior wall. RISK CATEGORY: High (>3%% Annual Mortality Rate) Anderson Foote MD Assessment and Plan Problem List: (1) CHF (congestive heart failure) ICD Code: I50.9 - Heart failure, unspecified Status: Acute (2) Respiratory distress ICD Code: R06.03 - Acute respiratory distress Status: Acute Assessment and Plan -Patient with unclear lower urinary tract symptoms -It appears henriquez catheter was placed more for monitoring UOP, and not for urinary retention -Any procedure appears to have been cancelled until a later date -Therefore, recommend henriquez catheter removal early tomorrow morning -Patient may void throughout the day and bladder scan after voiding. If PVRs are low (<300cc) then there is no need for henriquez catheter. If unable to void or PVR >300cc, replace henriquez catheter and may be discharged with catheter in place with followup in Urology clinic -Continue Flomax; May increase to twice daily -Patient would be clear for discharge from a Urology standpoint after PVR -Please call with questions Problem Qualifiers (1) CHF (congestive heart failure): Qualified Codes: I50.9 - Heart failure, unspecified (2) Pneumonia: Qualified Codes: J18.9 - Pneumonia, unspecified organism (3) Atrial fibrillation: Qualified Codes: I48.91 - Unspecified atrial fibrillation Young Bello MD Jul 11, 2017 13:17
[2017-07-11] MEDS: LACTULOSE SYRUP 20 GM/30 ML CUP PO PRN (14:22)
--- NOTE | 2017-07-11 15:45 | HHI.PR ---
Subjective Remarks Patient transferred from [facility] to [facility] for possible cardiac catheterization Cardiac catheterization cancelled at time due to elevated creatinine Objective Vitals Vital Signs Date Time Temp Pulse Resp B/P (MAP) Pulse Ox O2 Delivery O2 Flow Rate FiO2 07/11/17 12:00 86 07/11/17 12:00 98.8 86 20 99/66 (77) 93 07/11/17 08:34 Nasal Cannula 2.00 07/11/17 07:30 98.3 90 20 109/58 (75) 93 07/11/17 07:30 90 07/11/17 06:00 92 07/11/17 05:00 84 07/11/17 03:58 98.0 90 24 116/89 (98) 94 07/11/17 03:41 93 07/11/17 03:00 110 07/11/17 02:00 84 07/11/17 01:00 90 07/11/17 00:00 92 07/11/17 00:00 97.3 81 24 122/96 (105) 93 07/10/17 23:29 24 07/10/17 23:00 108 07/10/17 22:00 96 07/10/17 21:00 133 07/10/17 20:00 96 07/10/17 19:00 97.3 94 24 122/74 (90) 95 07/10/17 19:00 95 07/10/17 18:00 79 07/10/17 17:00 97 07/10/17 16:00 76 Result Diagram: 07/11/17 0405 07/11/17 0405 Other Results Laboratory Tests Test 07/11/17 04:05 White Blood Count 18.0 TH/MM3 Red Blood Count 4.47 MIL/MM3 Hemoglobin 13.9 GM/DL Hematocrit 42.2 % Mean Corpuscular Volume 94.6 FL Mean Corpuscular Hemoglobin 31.2 PG Mean Corpuscular Hemoglobin Concent 33.0 % Red Cell Distribution Width 14.7 % Platelet Count 319 TH/MM3 Mean Platelet Volume 9.0 FL Neutrophils (%) (Auto) 85.9 % Lymphocytes (%) (Auto) 4.8 % Monocytes (%) (Auto) 9.0 % Eosinophils (%) (Auto) 0.1 % Basophils (%) (Auto) 0.2 % Neutrophils # (Auto) 15.5 TH/MM3 Lymphocytes # (Auto) 0.9 TH/MM3 Monocytes # (Auto) 1.6 TH/MM3 Eosinophils # (Auto) 0.0 TH/MM3 Basophils # (Auto) 0.0 TH/MM3 CBC Comment DIFF FINAL Differential Comment Blood Urea Nitrogen 31 MG/DL Creatinine 1.62 MG/DL Random Glucose 202 MG/DL Calcium Level 9.8 MG/DL Sodium Level 137 MEQ/L Potassium Level 3.7 MEQ/L Chloride Level 99 MEQ/L Carbon Dioxide Level 30.5 MEQ/L Anion Gap 8 MEQ/L Estimat Glomerular Filtration Rate 42 ML/MIN Imaging Last 24 hours Impressions Chest X-Ray 07/06/17 1707 Signed Impressions: Service Date/Time: Thursday, July 06, 2017 17:12 - CONCLUSION: Left greater than right patchy interstitial infiltrate. Viral or atypical pneumonia or early community acquired pneumonia are in the differential. Stephon Robert MD Objective Remarks GENERAL: This is a well-nourished, well-developed patient, fatigued but in no apparent distress. CARDIOVASCULAR: Regular rate and rhythm RESPIRATORY: diminished bases bilaterally with crackles GASTROINTESTINAL: Abdomen soft, non-tender, nondistended. Normal active bowel sounds GENITOURINARY: henriquez draining red urine MUSCULOSKELETAL: Extremities without clubbing, cyanosis, or edema. NEURO: Alert & Oriented x4 to person, place, time, situation. Moves all ext x4 A/P Problem List: (1) Respiratory distress ICD Codes: R06.03 - Acute respiratory distress Status: Acute Plan: At home patient uses 2L oxygen via NC at night Currently patient on 2 L oxygen was requiring 4L previously during this hospitalization Patient endorses SOB has improved with Lasix (2) CHF (congestive heart failure) ICD Codes: I50.9 - Heart failure, unspecified Status: Acute Plan: - 2d echo consistent with low EF 30% (gumaro DC'd due to increasing renal function) - myocardial perfusion scan shows anterior and inferior wall defect with possible john-infarct ischemia patient transfered to main hospital for cardiac cath. - Cath cancelled per cardiology due to Cr elevated and + hematuria - cardiology decrease Lasix due to Cr. - Per cardiology given circumstances, had discussion with patient. May decide to not do LHC this hospitalization. Allow recovery of Cr and hematuria to resolve. Can discuss outpatient LHC. - repeat chest x ray shows no evidence of CHF (3) Pneumonia ICD Codes: J18.9 - Pneumonia, unspecified organism Status: Acute Plan: chest xray more consistent with CHF antibiotics stopped (07/09) (4) Atrial fibrillation ICD Codes: I48.91 - Unspecified atrial fibrillation Status: Resolved Plan: cardiac evaluation more of atrial tach with extra beats was on Cardizem 240 but reduced to 120 as had low blood pressure (5) Hematuria ICD Codes: R31.9 - Hematuria, unspecified Plan: Hematuria after patient accidently removed his own henriquez Consult Urology continue Flomax Assessment and Plan Patient examined. Assessment and plan formulated with Tatyana Cross PA-C. I agree with the above. Case d/w pt//daughter (by phone). All questions answered to the best of my ability. Repeat CBC, BMP, Mag in AM Problem Qualifiers (1) CHF (congestive heart failure): Qualified Codes: I50.9 - Heart failure, unspecified (2) Pneumonia: Qualified Codes: J18.9 - Pneumonia, unspecified organism (3) Atrial fibrillation: Qualified Codes: I48.91 - Unspecified atrial fibrillation Tatyana Cross Jul 11, 2017 15:44 Isaiah Agustin DO Jul 12, 2017 12:28
[2017-07-11] MEDS ORDERED: MORPHINE SULFATE 4 MG/ML INJ IV PRN (17:00)
[2017-07-12] VITALS (26 sets, daily range): BP systolic 111–136; BP diastolic 51–77; PULSE 65–131; RESP 18–19; TEMP 97.5–99.7; O2SAT 91–94
[2017-07-12 04:41] LABS: AUTOMATED NEUTROPHIL # 9.5 TH/MM3 (1.8-7.7); BASOPHIL % 0.4 % (0.0-2.0); EOSINOPHIL # 0.3 TH/MM3 (0-0.4); EOSINOPHIL % 2.4 % (0.0-4.0); HEMATOCRIT 38.7 % (39.0-51.0); HEMOGLOBIN 13.1 GM/DL (13.0-17.0); LYMPH % 11.2 % (9.0-44.0); LYMPHOCYTE # 1.4 TH/MM3 (1.0-4.8); MEAN CELL VOLUME 93.3 FL (80.0-100.0); MEAN CORPUSCULAR HEMOGLOBIN 31.5 PG (27.0-34.0); MEAN CORPUSCULAR HGB CONC 33.7 % (32.0-36.0); MEAN PLATELET VOLUME 9.4 FL (7.0-11.0); MONO % 11.8 % (0.0-8.0); MONOCYTE # 1.5 TH/MM3 (0-0.9); NEUT % 74.2 % (16.0-70.0); PLATELET COUNT 285 TH/MM3 (150-450); RED BLOOD COUNT 4.15 MIL/MM3 (4.50-5.90); RED CELL DISTRIBUTION WIDTH 14.8 % (11.6-17.2); WHITE BLOOD COUNT 12.8 TH/MM3 (4.0-11.0)
[2017-07-12 05:10] LABS: CALCIUM 9.2 MG/DL (8.5-10.1); CREATININE 1.2 MG/DL (0.60-1.30)
[2017-07-12] MEDS: PHENAZOPYRIDINE HCL 100 MG TAB PO SCH ×3 (05:12→21:54)
[2017-07-12] MEDS: INSULIN ASPART SUPPLEMENTAL SCALE SQ SCH ×4 (08:00→21:00)
--- NOTE | 2017-07-12 08:59 | PD.CARD.PN ---
Subjective Subjective Remarks patient reports voiding well overnight. improved dyspnea. feeling constipated. denies chest pain or palpitations. (July Patten) Objective Medications Current Medications Medications (Trade) Dose Ordered Sig/Smiley Route Start Time Stop Time Status Last Admin (Aspirin) 325 mg DAILY PO 07/07/17 09:00 07/11/17 09:01 (Diabeta) 2.5 mg DAILY@0800,1700 PO 07/07/17 08:00 07/11/17 17:54 (Glucophage) 500 mg BIDPC PO 07/07/17 09:00 07/11/17 17:53 (Flomax) 0.4 mg DAILY PO 07/07/17 09:00 07/11/17 09:01 (NS Flush) 2 ml UNSCH PRN IV FLUSH 07/06/17 19:00 07/10/17 23:24 (NS Flush) 2 ml BID IV FLUSH 07/06/17 21:00 07/11/17 20:48 (Tylenol) 650 mg Q4H PRN PO 07/06/17 19:00 (Narcan Inj) 0.4 mg UNSCH PRN IV PUSH 07/06/17 19:00 (Cristina-Colace) 1 tab BID PO 07/06/17 21:00 07/11/17 20:48 (Milk Of Magnesia Liq) 30 ml Q12H PRN PO 07/06/17 19:00 (Senokot) 17.2 mg Q12H PRN PO 07/06/17 19:00 07/10/17 20:45 (Dulcolax Supp) 10 mg DAILY PRN RECTAL 07/06/17 19:00 (Lactulose Liq) 30 ml DAILY PRN PO 07/06/17 19:00 07/11/17 14:22 (NovoLOG SUPPLEMENTAL SCALE) 1 ACHS SLIDING SCALE SQ 07/06/17 21:00 07/11/17 20:48 Patient Own Medication PT OWN MED: (Linagliptin (Tradjenta)... DAILY PO 07/07/17 09:00 07/11/17 09:02 (D50w (Vial) Inj) 50 ml UNSCH PRN IV PUSH 07/06/17 19:30 (Glucagon Inj) 1 mg UNSCH PRN OTHER 07/06/17 19:30 (Restoril) 30 mg HS PRN PO 07/07/17 21:00 07/10/17 21:35 (KCl) 8 meq Q12HR PO 07/08/17 21:00 07/11/17 20:48 (Cardizem Cd) 120 mg DAILY PO 07/09/17 09:00 07/11/17 09:01 (Pyridium) 100 mg Q8HR PO 07/11/17 06:00 07/12/17 05:12 (Lasix Inj) 20 mg BID@ IV PUSH 07/11/17 09:00 07/11/17 17:53 ([place] 5-325 Mg) 1 tab Q4H PRN PO 07/11/17 16:45 (Morphine Inj) 4 mg Q8H PRN IV 07/11/17 17:00 Vital Signs / I&O Vital Signs Date Time Temp Pulse Resp B/P (MAP) Pulse Ox O2 Delivery O2 Flow Rate FiO2 07/12/17 07:30 97.6 100 19 132/67 (88) 94 07/12/17 07:30 94 Nasal Cannula 3.00 07/12/17 06:00 115 07/12/17 05:00 82 07/12/17 04:00 81 07/12/17 03:00 94 Nasal Cannula 3.00 07/12/17 03:00 65 07/12/17 03:00 98.1 73 18 113/51 (71) 94 07/12/17 02:00 67 07/12/17 01:00 73 07/12/17 00:00 72 07/11/17 23:20 Bi-Pap 3.00 07/11/17 23:20 97.7 73 18 113/57 (75) 93 07/11/17 23:00 74 07/11/17 22:15 Bi-Pap 3.00 07/11/17 22:00 92 07/11/17 21:00 90 07/11/17 20:00 97.7 89 18 130/64 (86) 91 07/11/17 20:00 90 07/11/17 19:50 92 Nasal Cannula 4.00 07/11/17 19:46 94 Nasal Cannula 3.00 07/11/17 19:45 91 Nasal Cannula 3.00 07/11/17 19:00 87 07/11/17 18:00 94 07/11/17 17:00 84 07/11/17 16:00 84 07/11/17 15:30 97.6 84 18 133/60 (84) 92 07/11/17 15:30 84 07/11/17 15:00 80 07/11/17 14:00 88 07/11/17 13:00 80 07/11/17 12:00 86 07/11/17 12:00 98.8 86 20 99/66 (77) 93 07/11/17 11:00 80 07/11/17 10:00 82 07/11/17 09:00 80 I/O 07/11/17 07/11/17 07/11/17 07/12/17 07/12/17 07/12/17 07:00 15:00 23:00 07:00 15:00 23:00 Intake Total 240 ml 1440 ml 480 ml Output Total 310 ml 425 ml 975 ml Balance -70 ml 1015 ml -495 ml Intake Oral 240 ml 1440 ml 480 ml Output Urine Total 310 ml 425 ml 975 ml Emesis 0 ml # Bowel Movements 0 0 0 Physical Exam GENERAL: SKIN: Warm and dry. HEAD: Atraumatic. Normocephalic. EYES: Pupils equal and round. No scleral icterus. No injection or drainage. ENT: No nasal bleeding or discharge. NECK: Trachea midline. No JVD. CARDIOVASCULAR: tachycardic, normal rhythm. no murmurs RESPIRATORY: No accessory muscle use. decreased breath sounds bilaterally GASTROINTESTINAL: Abdomen soft, non-tender, nondistended. MUSCULOSKELETAL: Extremities without clubbing, cyanosis, or edema. No obvious deformities. NEUROLOGICAL: Awake and alert. No obvious cranial nerve deficits. Normal speech. PSYCHIATRIC: Appropriate mood and affect; insight and judgment normal. Laboratory Laboratory Tests Test 07/12/17 03:43 White Blood Count 12.8 TH/MM3 Red Blood Count 4.15 MIL/MM3 Hemoglobin 13.1 GM/DL Hematocrit 38.7 % Mean Corpuscular Volume 93.3 FL Mean Corpuscular Hemoglobin 31.5 PG Mean Corpuscular Hemoglobin Concent 33.7 % Red Cell Distribution Width 14.8 % Platelet Count 285 TH/MM3 Mean Platelet Volume 9.4 FL Neutrophils (%) (Auto) 74.2 % Lymphocytes (%) (Auto) 11.2 % Monocytes (%) (Auto) 11.8 % Eosinophils (%) (Auto) 2.4 % Basophils (%) (Auto) 0.4 % Neutrophils # (Auto) 9.5 TH/MM3 Lymphocytes # (Auto) 1.4 TH/MM3 Monocytes # (Auto) 1.5 TH/MM3 Eosinophils # (Auto) 0.3 TH/MM3 Basophils # (Auto) 0.0 TH/MM3 CBC Comment DIFF FINAL Differential Comment Blood Urea Nitrogen 30 MG/DL Creatinine 1.20 MG/DL Random Glucose 49 MG/DL Calcium Level 9.2 MG/DL Sodium Level 141 MEQ/L Potassium Level 3.6 MEQ/L Chloride Level 100 MEQ/L Carbon Dioxide Level 36.0 MEQ/L Anion Gap 5 MEQ/L Estimat Glomerular Filtration Rate 59 ML/MIN (July Patten) Assessment and Plan Problem List: (1) Cardiomyopathy ICD Codes: I42.9 - Cardiomyopathy, unspecified (2) CHF (congestive heart failure) ICD Codes: I50.9 - Heart failure, unspecified Status: Acute Assessment and Plan 77 yo WM with history of HTN, O2 dep COPD and diabetes who presented with acute dyspnea. cardiomyopathy- EF 25-30%. abnormal SPECT CHF- clinically improving tachycardic at times. cardiac catheterization on hold due to hematuria and elevated creatinine which has now improved. consider outpatient LHC vs. inpatient. hematuria- UTI, patient pulled out henriquez accidentally, new henriquez in place. urology following (July Patten) Assessment and Plan now afib RVR increase diltiazem dig x 1 C on hold this hospitalization. may consider as outpatient at this point after discussion with patient, he is not intersted in C right now amio load and gtt. no history of afib. asa 325. no anticoagulant given hematuria, so ideally, if we can get back in NSR, we can reduce stroke risk (Juan C Sam MD) Problem Qualifiers (1) CHF (congestive heart failure): Qualified Codes: I50.9 - Heart failure, unspecified July Patten Jul 12, 2017 08:59 Juan C Sam MD Jul 12, 2017 11:15
[2017-07-12] MEDS: LACTULOSE SYRUP 20 GM/30 ML CUP PO PRN (09:13)
[2017-07-12] MEDS: metFORMIN HCL 500 MG TAB PO SCH ×2 (09:14→17:09)
[2017-07-12] MEDS: DILTIAZEM-CD 120 MG CAP ER PO SCH (09:14)
[2017-07-12] MEDS: DOCUSATE SODIUM 50 MG/SENNA 8.6 MG TAB PO SCH ×2 (09:14→21:53)
[2017-07-12] MEDS: TAMSULOSIN HCL 0.4 MG CAP PO SCH (09:15)
[2017-07-12] MEDS: ASPIRIN 325 MG TAB PO SCH (09:15)
[2017-07-12] MEDS: FUROSEMIDE 40 MG/4 ML VIAL IV PUSH SCH (09:15)
[2017-07-12] MEDS: SODIUM CHLORIDE 0.9% FLUSH 10 ML FLUSH IV FLUSH SCH ×2 (09:16→21:00)
[2017-07-12] MEDS: PATIENT OWN: (Linagliptin (Tradjenta) 5 MG) PO SCH (09:16)
[2017-07-12] MEDS: POTASSIUM CHLORIDE 8 MEQ CONTROLLED RELEASE TAB PO SCH ×2 (09:16→21:53)
[2017-07-12] MEDS: glyBURIDE 2.5 MG TAB PO SCH (09:20)
[2017-07-12] MEDS ORDERED: DILTIAZEM-CD 120 MG CAP ER PO ONE (11:00)
[2017-07-12] MEDS: MAGNESIUM HYDROXIDE SUSP 30 ML CUP PO PRN (11:13)
[2017-07-12] MEDS ORDERED: DIGOXIN 0.5 MG/2 ML VIAL IV PUSH ONE (11:15)
[2017-07-12] MEDS ORDERED: AMIODARONE INJ 450 MG in SODIUM CHLOR 0.9% (EXCEL) INJ 241 ML IV PRN (11:25)
--- NOTE | 2017-07-12 11:39 | HHI.PR ---
Subjective Remarks No new complaints today. Pt's SOB improved from admission. Objective Vitals Vital Signs Date Time Temp Pulse Resp B/P (MAP) Pulse Ox O2 Delivery O2 Flow Rate FiO2 07/12/17 11:00 94 Nasal Cannula 3.00 07/12/17 11:00 98.5 107 19 117/62 (80) 94 07/12/17 11:00 131 07/12/17 10:56 93 Nasal Cannula 3.00 07/12/17 10:00 121 07/12/17 09:00 120 07/12/17 08:00 90 07/12/17 07:30 97.6 100 19 132/67 (88) 94 07/12/17 07:30 94 Nasal Cannula 3.00 07/12/17 07:00 72 07/12/17 06:00 115 07/12/17 05:00 82 07/12/17 04:00 81 07/12/17 03:00 94 Nasal Cannula 3.00 07/12/17 03:00 65 07/12/17 03:00 98.1 73 18 113/51 (71) 94 07/12/17 02:00 67 07/12/17 01:00 73 07/12/17 00:00 72 07/11/17 23:20 Bi-Pap 3.00 07/11/17 23:20 97.7 73 18 113/57 (75) 93 07/11/17 23:00 74 07/11/17 22:15 Bi-Pap 3.00 07/11/17 22:00 92 07/11/17 21:00 90 07/11/17 20:00 97.7 89 18 130/64 (86) 91 07/11/17 20:00 90 07/11/17 19:50 92 Nasal Cannula 4.00 07/11/17 19:46 94 Nasal Cannula 3.00 07/11/17 19:45 91 Nasal Cannula 3.00 07/11/17 19:00 87 07/11/17 18:00 94 07/11/17 17:00 84 07/11/17 16:00 84 07/11/17 15:30 97.6 84 18 133/60 (84) 92 07/11/17 15:30 84 07/11/17 15:00 80 07/11/17 14:00 88 07/11/17 13:00 80 07/11/17 12:00 86 07/11/17 12:00 98.8 86 20 99/66 (28) 84 Result Diagram: 07/12/17 0343 07/12/17 0343 Imaging Last 24 hours Impressions Chest X-Ray 07/06/17 1707 Signed Impressions: Service Date/Time: Thursday, July 06, 2017 17:12 - CONCLUSION: Left greater than right patchy interstitial infiltrate. Viral or atypical pneumonia or early community acquired pneumonia are in the differential. Stephon Robert MD Objective Remarks GENERAL: This is a well-nourished, well-developed patient, fatigued but in no apparent distress. CARDIOVASCULAR: Regular rate and rhythm RESPIRATORY: diminished bases bilaterally with crackles GASTROINTESTINAL: Abdomen soft, non-tender, nondistended. Normal active bowel sounds GENITOURINARY: henriquez draining red urine MUSCULOSKELETAL: Extremities without clubbing, cyanosis, or edema. NEURO: Alert & Oriented x4 to person, place, time, situation. Moves all ext x4 A/P Problem List: (1) CHF (congestive heart failure) ICD Codes: I50.9 - Heart failure, unspecified Status: Acute Plan: - Underlying COPD - 2d echo consistent with low EF 30% (gumaro DC'd due to increasing renal function) - myocardial perfusion scan shows anterior and inferior wall defect with possible john-infarct ischemia patient transfered to [facility] for cardiac cath. - Cath cancelled per cardiology due to Cr elevated and + hematuria - Case d/w Dr. Sam (07/12/17) - Pt will be medically maximized at this time - No LHC during this hospitalization - Repeat CXR in AM - ABX stopped 07/09/17. Findings more c/w chf, pneumonia less likely - Continue PO lasix - O2 at 3L by NC (2) Atrial fibrillation ICD Codes: I48.91 - Unspecified atrial fibrillation Status: Resolved Plan: - Telemetry (07/12): Afib RVR with HR sustaining in the 130s - Cardizem increased back up to 240mg daily - digoxin per Cardiology - repeat Digoxin level in AM (3) Hematuria ICD Codes: R31.9 - Hematuria, unspecified Plan: - comgmt with Urology - Hematuria after patient accidently removed his own henriquez - continue flomax, pyridium (4) DM2 (diabetes mellitus, type 2) ICD Codes: E11.9 - Type 2 diabetes mellitus without complications Status: Chronic Problem Qualifiers (1) CHF (congestive heart failure): Qualified Codes: I50.9 - Heart failure, unspecified (2) Atrial fibrillation: Qualified Codes: I48.91 - Unspecified atrial fibrillation (3) DM2 (diabetes mellitus, type 2): Isaiah Agustin DO Jul 12, 2017 11:39
[2017-07-12] MEDS ORDERED: AMIODARONE INJ 150 MG in DEXTROSE 5% IN WATER 100ML INJ 97 ML IV ONE ×2 (12:00)
[2017-07-12] MEDS: ACETAMINOPHEN/HYDROcodone 325 MG/5 MG TAB PO PRN ×2 (17:10→21:13)
[2017-07-12] MEDS: FUROSEMIDE 20 MG TAB PO SCH (17:10)
--- NOTE | 2017-07-12 18:45 | HHI.PR ---
Subjective Patient symptoms today Henriquez in place, draining well. Objective Vital Signs Vital Signs Date Time Temp Pulse Resp B/P (MAP) Pulse Ox O2 Delivery O2 Flow Rate FiO2 07/12/17 18:15 19 07/12/17 18:00 85 07/12/17 17:00 87 07/12/17 16:00 80 07/12/17 15:00 85 07/12/17 15:00 94 Nasal Cannula 3.00 07/12/17 15:00 99.7 89 19 111/77 (88) 94 07/12/17 14:00 88 07/12/17 13:00 79 07/12/17 12:00 86 07/12/17 11:00 94 Nasal Cannula 3.00 07/12/17 11:00 98.5 107 19 117/62 (80) 94 07/12/17 11:00 131 07/12/17 10:56 93 Nasal Cannula 3.00 07/12/17 10:00 121 07/12/17 09:00 120 07/12/17 08:00 90 07/12/17 07:30 97.6 100 19 132/67 (88) 94 07/12/17 07:30 94 Nasal Cannula 3.00 07/12/17 07:00 72 07/12/17 06:00 115 07/12/17 05:00 82 07/12/17 04:00 81 07/12/17 03:00 94 Nasal Cannula 3.00 07/12/17 03:00 65 07/12/17 03:00 98.1 73 18 113/51 (71) 94 07/12/17 02:00 67 07/12/17 01:00 73 07/12/17 00:00 72 07/11/17 23:20 Bi-Pap 3.00 07/11/17 23:20 97.7 73 18 113/57 (75) 93 07/11/17 23:00 74 07/11/17 22:15 Bi-Pap 3.00 07/11/17 22:00 92 07/11/17 21:00 90 07/11/17 20:00 97.7 89 18 130/64 (86) 91 07/11/17 20:00 90 07/11/17 19:50 92 Nasal Cannula 4.00 07/11/17 19:46 94 Nasal Cannula 3.00 07/11/17 19:45 91 Nasal Cannula 3.00 07/11/17 19:00 87 Intake & Output 07/12/17 07/12/17 07:00 19:00 Intake Total 480 ml 960 ml Output Total 975 ml 440 ml Balance -495 ml 520 ml Intake Oral 480 ml 960 ml Output Urine Total 975 ml 440 ml # Bowel Movements 0 2 Result Diagram: 07/12/17 0343 07/12/17 0343 Objective Remarks NAD, AAOx3 Resp NL Henriquez with orange, light red urine Medications and IVs Current Medications Medications (Trade) Dose Ordered Sig/Smiley Route Start Time Stop Time Status Last Admin (Aspirin) 325 mg DAILY PO 07/07/17 09:00 07/12/17 09:15 (Glucophage) 500 mg BIDPC PO 07/07/17 09:00 07/12/17 17:09 (Flomax) 0.4 mg DAILY PO 07/07/17 09:00 07/12/17 09:15 (NS Flush) 2 ml UNSCH PRN IV FLUSH 07/06/17 19:00 07/10/17 23:24 (NS Flush) 2 ml BID IV FLUSH 07/06/17 21:00 07/12/17 09:16 (Tylenol) 650 mg Q4H PRN PO 07/06/17 19:00 (Narcan Inj) 0.4 mg UNSCH PRN IV PUSH 07/06/17 19:00 (Cristina-Colace) 1 tab BID PO 07/06/17 21:00 07/12/17 09:14 (Milk Of Magnesia Liq) 30 ml Q12H PRN PO 07/06/17 19:00 07/12/17 11:13 (Senokot) 17.2 mg Q12H PRN PO 07/06/17 19:00 07/10/17 20:45 (Dulcolax Supp) 10 mg DAILY PRN RECTAL 07/06/17 19:00 (Lactulose Liq) 30 ml DAILY PRN PO 07/06/17 19:00 07/12/17 09:13 (NovoLOG SUPPLEMENTAL SCALE) 1 ACHS SLIDING SCALE SQ 07/06/17 21:00 07/12/17 17:09 Patient Own Medication PT OWN MED: (Linagliptin (Tradjenta)... DAILY PO 07/07/17 09:00 07/12/17 09:16 (D50w (Vial) Inj) 50 ml UNSCH PRN IV PUSH 07/06/17 19:30 (Glucagon Inj) 1 mg UNSCH PRN OTHER 07/06/17 19:30 (Restoril) 30 mg HS PRN PO 07/07/17 21:00 07/10/17 21:35 (KCl) 8 meq Q12HR PO 07/08/17 21:00 07/12/17 09:16 (Pyridium) 100 mg Q8HR PO 07/11/17 06:00 07/12/17 14:18 ([place] 5-325 Mg) 1 tab Q4H PRN PO 07/11/17 16:45 07/12/17 17:10 (Morphine Inj) 4 mg Q8H PRN IV 07/11/17 17:00 (Cardizem Cd) 240 mg DAILY PO 07/13/17 09:00 (Lasix) 20 mg BID@ PO 07/12/17 18:00 07/12/17 17:10 Assessment and Plan Problem List: (1) CHF (congestive heart failure) ICD Code: I50.9 - Heart failure, unspecified Status: Acute (2) Respiratory distress ICD Code: R06.03 - Acute respiratory distress Status: Acute Assessment and Plan -Recommend henriquez catheter removal early tomorrow morning -Patient may void throughout the day and bladder scan after voiding. If PVRs are low (<300cc) then there is no need for henriquez catheter. If unable to void or PVR >300cc, replace henriquez catheter and may be discharged with catheter in place with followup in Urology clinic -Continue Flomax; May increase to twice daily -Patient would be clear for discharge from a Urology standpoint after PVR -Please call with questions Problem Qualifiers (1) CHF (congestive heart failure): Qualified Codes: I50.9 - Heart failure, unspecified Young Bello MD Jul 12, 2017 18:45
[2017-07-12] MEDS: TEMAZEPAM 15 MG CAP PO PRN (21:55)
[2017-07-13] VITALS (29 sets, daily range): BP systolic 113–160; BP diastolic 54–69; PULSE 51–93; RESP 16–19; TEMP 96.8–98.4; O2SAT 91–96
[2017-07-13] MEDS: ACETAMINOPHEN/HYDROcodone 325 MG/5 MG TAB PO PRN ×2 (03:46→09:12)
[2017-07-13 05:27] LABS: AUTOMATED NEUTROPHIL # 6.7 TH/MM3 (1.8-7.7); BASOPHIL % 0.4 % (0.0-2.0); EOSINOPHIL # 0.4 TH/MM3 (0-0.4); EOSINOPHIL % 3.5 % (0.0-4.0); HEMATOCRIT 38.7 % (39.0-51.0); HEMOGLOBIN 12.9 GM/DL (13.0-17.0); LYMPH % 17.5 % (9.0-44.0); LYMPHOCYTE # 1.8 TH/MM3 (1.0-4.8); MEAN CELL VOLUME 94.4 FL (80.0-100.0); MEAN CORPUSCULAR HEMOGLOBIN 31.5 PG (27.0-34.0); MEAN CORPUSCULAR HGB CONC 33.4 % (32.0-36.0); MEAN PLATELET VOLUME 9.5 FL (7.0-11.0); MONO % 14.7 % (0.0-8.0); MONOCYTE # 1.5 TH/MM3 (0-0.9); NEUT % 63.9 % (16.0-70.0); PLATELET COUNT 274 TH/MM3 (150-450); RED BLOOD COUNT 4.09 MIL/MM3 (4.50-5.90); RED CELL DISTRIBUTION WIDTH 14.5 % (11.6-17.2); WHITE BLOOD COUNT 10.5 TH/MM3 (4.0-11.0)
[2017-07-13] MEDS: PHENAZOPYRIDINE HCL 100 MG TAB PO SCH ×3 (05:33→20:33)
[2017-07-13 05:37] LABS: BICARBONATE 34.3 MEQ/L (21.0-32.0); CALCIUM 9.4 MG/DL (8.5-10.1); CREATININE 1.12 MG/DL (0.60-1.30)
[2017-07-13 05:52] LABS: DIGOXIN 0.7 NG/ML (0.8-2.0)
[2017-07-13] MEDS: INSULIN ASPART SUPPLEMENTAL SCALE SQ SCH ×4 (08:00→20:28)
[2017-07-13] MEDS: POTASSIUM CHLORIDE 8 MEQ CONTROLLED RELEASE TAB PO SCH ×2 (09:10→20:35)
[2017-07-13] MEDS: ASPIRIN 325 MG TAB PO SCH (09:10)
[2017-07-13] MEDS: TAMSULOSIN HCL 0.4 MG CAP PO SCH (09:10)
[2017-07-13] MEDS: FUROSEMIDE 20 MG TAB PO SCH ×2 (09:10→17:18)
[2017-07-13] MEDS: DOCUSATE SODIUM 50 MG/SENNA 8.6 MG TAB PO SCH ×2 (09:10→20:35)
[2017-07-13] MEDS: metFORMIN HCL 500 MG TAB PO SCH ×2 (09:11→17:19)
[2017-07-13] MEDS: DILTIAZEM-CD 120 MG CAP ER PO SCH (09:11)
[2017-07-13] MEDS: PATIENT OWN: (Linagliptin (Tradjenta) 5 MG) PO SCH (09:11)
[2017-07-13] MEDS: MAGNESIUM HYDROXIDE SUSP 30 ML CUP PO PRN (09:12)
[2017-07-13] MEDS: SODIUM CHLORIDE 0.9% FLUSH 10 ML FLUSH IV FLUSH SCH ×2 (09:13→20:35)
--- NOTE | 2017-07-13 09:54 | PD.CARD.PN ---
Subjective Subjective Remarks feeling better. henriquez cath due to be removed today. no chest pain or sob. converted to NSR (July Patten) Objective Medications Current Medications Medications (Trade) Dose Ordered Sig/Smiley Route Start Time Stop Time Status Last Admin (Aspirin) 325 mg DAILY PO 07/07/17 09:00 07/13/17 09:10 (Glucophage) 500 mg BIDPC PO 07/07/17 09:00 07/13/17 09:11 (Flomax) 0.4 mg DAILY PO 07/07/17 09:00 07/13/17 09:10 (NS Flush) 2 ml UNSCH PRN IV FLUSH 07/06/17 19:00 07/10/17 23:24 (NS Flush) 2 ml BID IV FLUSH 07/06/17 21:00 07/13/17 09:13 (Tylenol) 650 mg Q4H PRN PO 07/06/17 19:00 (Narcan Inj) 0.4 mg UNSCH PRN IV PUSH 07/06/17 19:00 (Cristina-Colace) 1 tab BID PO 07/06/17 21:00 07/13/17 09:10 (Milk Of Magnesia Liq) 30 ml Q12H PRN PO 07/06/17 19:00 07/13/17 09:12 (Senokot) 17.2 mg Q12H PRN PO 07/06/17 19:00 07/10/17 20:45 (Dulcolax Supp) 10 mg DAILY PRN RECTAL 07/06/17 19:00 (Lactulose Liq) 30 ml DAILY PRN PO 07/06/17 19:00 07/12/17 09:13 (NovoLOG SUPPLEMENTAL SCALE) 1 ACHS SLIDING SCALE SQ 07/06/17 21:00 07/12/17 17:09 Patient Own Medication PT OWN MED: (Linagliptin (Tradjenta)... DAILY PO 07/07/17 09:00 07/13/17 09:11 (D50w (Vial) Inj) 50 ml UNSCH PRN IV PUSH 07/06/17 19:30 (Glucagon Inj) 1 mg UNSCH PRN OTHER 07/06/17 19:30 (Restoril) 30 mg HS PRN PO 07/07/17 21:00 07/12/17 21:55 (KCl) 8 meq Q12HR PO 07/08/17 21:00 07/13/17 09:10 (Pyridium) 100 mg Q8HR PO 07/11/17 06:00 07/13/17 05:33 ([place] 5-325 Mg) 1 tab Q4H PRN PO 07/11/17 16:45 07/13/17 09:12 (Morphine Inj) 4 mg Q8H PRN IV 07/11/17 17:00 (Cardizem Cd) 240 mg DAILY PO 07/13/17 09:00 07/13/17 09:11 (Lasix) 20 mg BID@18 PO 07/12/17 18:00 07/13/17 09:10 Vital Signs / I&O Vital Signs Date Time Temp Pulse Resp B/P (MAP) Pulse Ox O2 Delivery O2 Flow Rate FiO2 07/13/17 09:00 87 07/13/17 08:00 78 07/13/17 07:15 94 Nasal Cannula 07/13/17 07:15 96.8 75 17 160/69 (99) 94 07/13/17 07:00 66 07/13/17 06:01 67 07/13/17 05:00 70 07/13/17 04:51 17 07/13/17 04:10 74 07/13/17 03:16 96 Nasal Cannula 3.00 07/13/17 03:15 97.6 71 18 113/54 (73) 96 07/13/17 03:00 59 07/13/17 02:07 62 07/13/17 01:00 66 07/13/17 00:00 65 07/12/17 23:12 97.5 80 18 136/61 (86) 93 07/12/17 23:10 93 Nasal Cannula 3.00 07/12/17 23:00 69 07/12/17 20:03 91 Nasal Cannula 3.00 07/12/17 20:03 97.5 90 18 125/62 (83) 91 07/12/17 19:51 92 Nasal Cannula 3.50 07/12/17 19:00 78 07/12/17 18:00 85 07/12/17 17:00 87 07/12/17 16:00 80 07/12/17 15:00 85 07/12/17 15:00 94 Nasal Cannula 3.00 07/12/17 15:00 99.7 89 19 111/77 (88) 94 07/12/17 14:00 88 07/12/17 13:00 79 07/12/17 12:00 86 07/12/17 11:00 94 Nasal Cannula 3.00 07/12/17 11:00 98.5 107 19 117/62 (80) 94 07/12/17 11:00 131 07/12/17 10:56 93 Nasal Cannula 3.00 07/12/17 10:00 121 I/O 07/12/17 07/12/17 07/12/17 07/13/17 07/13/17 07/13/17 07:00 15:00 23:00 07:00 15:00 23:00 Intake Total 480 ml 960 ml 480 ml Output Total 975 ml 440 ml 625 ml Balance -495 ml 520 ml -145 ml Intake Oral 480 ml 960 ml 480 ml Output Urine Total 975 ml 440 ml 625 ml # Bowel Movements 0 2 0 Physical Exam GENERAL: SKIN: Warm and dry. HEAD: Atraumatic. Normocephalic. EYES: Pupils equal and round. No scleral icterus. No injection or drainage. ENT: No nasal bleeding or discharge. NECK: Trachea midline. No JVD. CARDIOVASCULAR: tachycardic, normal rhythm. no murmurs RESPIRATORY: No accessory muscle use. decreased breath sounds bilaterally GASTROINTESTINAL: Abdomen soft, non-tender, nondistended. MUSCULOSKELETAL: Extremities without clubbing, cyanosis, or edema. No obvious deformities. NEUROLOGICAL: Awake and alert. No obvious cranial nerve deficits. Normal speech. PSYCHIATRIC: Appropriate mood and affect; insight and judgment normal. Laboratory Laboratory Tests Test 07/13/17 04:32 White Blood Count 10.5 TH/MM3 Red Blood Count 4.09 MIL/MM3 Hemoglobin 12.9 GM/DL Hematocrit 38.7 % Mean Corpuscular Volume 94.4 FL Mean Corpuscular Hemoglobin 31.5 PG Mean Corpuscular Hemoglobin Concent 33.4 % Red Cell Distribution Width 14.5 % Platelet Count 274 TH/MM3 Mean Platelet Volume 9.5 FL Neutrophils (%) (Auto) 63.9 % Lymphocytes (%) (Auto) 17.5 % Monocytes (%) (Auto) 14.7 % Eosinophils (%) (Auto) 3.5 % Basophils (%) (Auto) 0.4 % Neutrophils # (Auto) 6.7 TH/MM3 Lymphocytes # (Auto) 1.8 TH/MM3 Monocytes # (Auto) 1.5 TH/MM3 Eosinophils # (Auto) 0.4 TH/MM3 Basophils # (Auto) 0.0 TH/MM3 CBC Comment DIFF FINAL Differential Comment Blood Urea Nitrogen 27 MG/DL Creatinine 1.12 MG/DL Random Glucose 67 MG/DL Calcium Level 9.4 MG/DL Sodium Level 138 MEQ/L Potassium Level 3.7 MEQ/L Chloride Level 99 MEQ/L Carbon Dioxide Level 34.3 MEQ/L Anion Gap 5 MEQ/L Estimat Glomerular Filtration Rate 64 ML/MIN Digoxin Level 0.7 NG/ML (July Patten) Assessment and Plan Problem List: (1) Cardiomyopathy ICD Codes: I42.9 - Cardiomyopathy, unspecified (2) CHF (congestive heart failure) ICD Codes: I50.9 - Heart failure, unspecified Status: Acute Assessment and Plan 77 yo WM with history of HTN, O2 dep COPD and diabetes who presented with acute dyspnea. cardiomyopathy- EF 25-30%. abnormal SPECT CHF- clinically improving afib- converted to NSR. no anticoagulation due to recent hematuria. SBP stable abnormal SPECT- tentatively plan for [facility] tomorrow am. patient's daughter is a nurse at [facility] and requesting he be transferred there for [facility]. hematuria- henriquez in place and due to be removed today (July Patten) Assessment and Plan remove henriquez clinically improved breathing. now NSR plan for C tomorrow. (Juan C Sam MD) Problem Qualifiers (1) CHF (congestive heart failure): Qualified Codes: I50.9 - Heart failure, unspecified July Patten Jul 13, 2017 09:54 Juan C Sam MD Jul 13, 2017 12:00
--- NOTE | 2017-07-13 10:53 | HHI.PR ---
Subjective Remarks No new complaints. Objective Vitals Vital Signs Date Time Temp Pulse Resp B/P (MAP) Pulse Ox O2 Delivery O2 Flow Rate FiO2 07/13/17 10:25 51 16 153/67 (95) 93 07/13/17 09:00 87 07/13/17 08:00 78 07/13/17 07:15 94 Nasal Cannula 07/13/17 07:15 96.8 75 17 160/69 (99) 94 07/13/17 07:00 66 07/13/17 06:01 67 07/13/17 05:00 70 07/13/17 04:51 17 07/13/17 04:10 74 07/13/17 03:16 96 Nasal Cannula 3.00 07/13/17 03:15 97.6 71 18 113/54 (73) 96 07/13/17 03:00 59 07/13/17 02:07 62 07/13/17 01:00 66 07/13/17 00:00 65 07/12/17 23:12 97.5 80 18 136/61 (86) 93 07/12/17 23:10 93 Nasal Cannula 3.00 07/12/17 23:00 69 07/12/17 20:03 91 Nasal Cannula 3.00 07/12/17 20:03 97.5 90 18 125/62 (83) 91 07/12/17 19:51 92 Nasal Cannula 3.50 07/12/17 19:00 78 07/12/17 18:00 85 07/12/17 17:00 87 07/12/17 16:00 80 07/12/17 15:00 85 07/12/17 15:00 94 Nasal Cannula 3.00 07/12/17 15:00 99.7 89 19 111/77 (88) 94 07/12/17 14:00 88 07/12/17 13:00 79 07/12/17 12:00 86 07/12/17 11:00 94 Nasal Cannula 3.00 07/12/17 11:00 98.5 107 19 117/62 (80) 94 07/12/17 11:00 131 07/12/17 10:56 93 Nasal Cannula 3.00 Result Diagram: 07/13/17 0432 07/13/17 0432 Imaging Last 24 hours Impressions Chest X-Ray 07/06/17 1707 Signed Impressions: Service Date/Time: Thursday, July 06, 2017 17:12 - CONCLUSION: Left greater than right patchy interstitial infiltrate. Viral or atypical pneumonia or early community acquired pneumonia are in the differential. Stephon Robert MD Objective Remarks GENERAL: This is a well-nourished, well-developed patient, fatigued but in no apparent distress. CARDIOVASCULAR: Regular rate and rhythm RESPIRATORY: clear x b/l GASTROINTESTINAL: Abdomen soft, non-tender, nondistended. Normal active bowel sounds GENITOURINARY: henriquez draining red urine (pt receiving pyridium) MUSCULOSKELETAL: Extremities without clubbing, cyanosis, or edema. NEURO: Alert & Oriented x4 to person, place, time, situation. Moves all ext x4 A/P Problem List: (1) CHF (congestive heart failure) ICD Codes: I50.9 - Heart failure, unspecified Status: Acute Plan: - Underlying COPD - 2d echo consistent with low EF 30% (gumaro DC'd due to increasing renal function) - myocardial perfusion scan shows anterior and inferior wall defect with possible john-infarct ischemia patient transfered to [facility] for cardiac cath. - Cr now improved to baseline: 1.10 (07/06), 2 (1.62), 07/20 (1.12) - henriquez in place, urine discolored d/t pyridium - Hg stable 13.9 (07/06), 13.9 (07/11), 13.1 (07/12), 12.9 (07/13) - Case d/w Dr. Sam (07/13/17) - Will proceed with C in AM (07/14) as long as pt remains stable - repeat CBC, BMP, Mag in AM - Repeat CXR (07/13) - Repeat CXR in AM - ABX stopped 07/09/17. Findings more c/w chf, pneumonia less likely - Continue PO lasix - O2 at 3L by NC, will try to wean to 2L - SCD for DVT prophylaxis - supportive care - Case reviewed with pt's floor nurse, unit charge nurse, and Jose Canales ( [place] [facility] [employer] [facility] supervisor) (2) Atrial fibrillation ICD Codes: I48.91 - Unspecified atrial fibrillation Status: Acute Plan: - improved - Telemetry (07/12): Afib now rate controlled - Cardizem increased back up to 240mg on 2/3 - one time dose of digoxin 07/12 - digoxin level 0.7 (07/13) (3) Hematuria ICD Codes: R31.9 - Hematuria, unspecified Status: Acute Plan: - comgmt with Urology - Hematuria after patient accidently removed his own henriquez - continue flomax, pyridium - Case d/w [facility], Dr. Bello - will leave henriquez in place until after [facility] (4) DM2 (diabetes mellitus, type 2) ICD Codes: E11.9 - Type 2 diabetes mellitus without complications Status: Chronic Problem Qualifiers (1) CHF (congestive heart failure): Qualified Codes: I50.9 - Heart failure, unspecified (2) Atrial fibrillation: Qualified Codes: I48.91 - Unspecified atrial fibrillation (3) DM2 (diabetes mellitus, type 2): Isaiah Agustin DO Jul 13, 2017 10:53
--- NOTE | 2017-07-13 10:54 | RADRPT ---
EXAM DATE/TIME: 07/13/2017 10:38 [place] COMPARISON: CHEST PA & LAT, July 08, 2017, 13:31. INDICATIONS : Short of Breath MEDICAL HISTORY : Congestive heart failure. Hypertension. A-fib SURGICAL HISTORY : None. ENCOUNTER: Subsequent ACUITY: 1 week PAIN SCORE: 0/10 LOCATION: chest FINDINGS: PA and lateral views of the chest demonstrate the lungs to be symmetrically aerated without evidence of mass, infiltrate or effusion. Eventration right hemidiaphragm. Bibasilar linear densities. The ca rdiomediastinal contours are unremarkable. Osseous structures are intact. CONCLUSION: 1. Bibasilar densities likely atelectasis. 2. Eventration right hemidiaphragm. Delta Shook MD on July 13, 2017 at 10:51 Board Certified Radiologist. This report was verified electronically.
[2017-07-13] MEDS: LACTULOSE SYRUP 20 GM/30 ML CUP PO PRN (15:05)
[2017-07-13] MEDS: TEMAZEPAM 15 MG CAP PO PRN (20:34)
[2017-07-14] VITALS (19 sets, daily range): BP systolic 132–155; BP diastolic 56–77; PULSE 52–88; RESP 17–20; TEMP 97.6–98.2; O2SAT 3–96
[2017-07-14] MEDS: PHENAZOPYRIDINE HCL 100 MG TAB PO SCH ×2 (06:07→15:48)
[2017-07-14 06:23] LABS: AUTOMATED NEUTROPHIL # 5.8 TH/MM3 (1.8-7.7); BASOPHIL # 0.1 TH/MM3 (0-0.2); BASOPHIL % 0.6 % (0.0-2.0); EOSINOPHIL # 0.4 TH/MM3 (0-0.4); EOSINOPHIL % 4.2 % (0.0-4.0); HEMATOCRIT 38.9 % (39.0-51.0); LYMPH % 16.7 % (9.0-44.0); LYMPHOCYTE # 1.5 TH/MM3 (1.0-4.8); MEAN CELL VOLUME 93.3 FL (80.0-100.0); MEAN CORPUSCULAR HEMOGLOBIN 31.3 PG (27.0-34.0); MEAN CORPUSCULAR HGB CONC 33.5 % (32.0-36.0); MEAN PLATELET VOLUME 9.4 FL (7.0-11.0); MONO % 13.1 % (0.0-8.0); MONOCYTE # 1.2 TH/MM3 (0-0.9); NEUT % 65.4 % (16.0-70.0); PLATELET COUNT 269 TH/MM3 (150-450); RED BLOOD COUNT 4.17 MIL/MM3 (4.50-5.90); RED CELL DISTRIBUTION WIDTH 14.4 % (11.6-17.2); WHITE BLOOD COUNT 8.9 TH/MM3 (4.0-11.0)
[2017-07-14 06:52] LABS: CALCIUM 8.9 MG/DL (8.5-10.1); CREATININE 1.02 MG/DL (0.60-1.30)
[2017-07-14] MEDS: INSULIN ASPART SUPPLEMENTAL SCALE SQ SCH ×4 (07:56→20:46)
--- NOTE | 2017-07-14 08:02 | HHI.PR ---
Subjective Remarks pt says his breathing is back to baseline urinating w/out problems after henriquez removed yesterday. Objective Vitals in chair on 3lnc heart reg lung good air entry abd s/nt ext trace edema Vital Signs Date Time Temp Pulse Resp B/P (MAP) Pulse Ox O2 Delivery O2 Flow Rate FiO2 07/14/17 07:46 Nasal Cannula 3.00 07/14/17 07:00 91 Nasal Cannula 3.00 07/14/17 07:00 63 07/14/17 07:00 97.8 66 20 155/66 (95) 91 07/14/17 06:00 63 07/14/17 05:10 52 07/14/17 04:00 57 07/14/17 03:05 98.2 80 17 135/56 (82) 95 07/14/17 03:03 96 3.00 07/14/17 03:00 61 07/14/17 02:00 62 07/14/17 01:04 60 07/14/17 00:05 63 07/13/17 23:00 73 07/13/17 23:00 95 Nasal Cannula 3.00 07/13/17 23:00 97.9 85 18 121/59 (79) 95 07/13/17 22:00 82 07/13/17 21:00 75 07/13/17 20:00 84 07/13/17 20:00 Nasal Cannula 3.00 07/13/17 19:49 97.6 93 17 132/60 (84) 93 07/13/17 19:46 94 Nasal Cannula 3.00 07/13/17 19:00 91 07/13/17 18:00 90 07/13/17 17:00 80 07/13/17 16:00 73 07/13/17 15:00 57 07/13/17 15:00 96 Nasal Cannula 3.00 07/13/17 15:00 98.4 60 19 155/67 (96) 96 07/13/17 14:00 62 07/13/17 13:41 19 07/13/17 13:00 77 07/13/17 12:00 90 07/13/17 11:00 92 Nasal Cannula 3.00 07/13/17 11:00 97.4 92 19 141/63 (89) 92 07/13/17 11:00 19 2/4/18 11:00 93 07/13/17 10:25 51 16 153/67 (95) 93 07/13/17 10:21 91 Nasal Cannula 3.50 07/13/17 10:00 82 07/13/17 09:00 87 07/13/17 08:00 78 Result Diagram: 07/14/17 0550 07/14/17 0550 Imaging Last 24 hours Impressions Chest X-Ray 07/06/17 1707 Signed Impressions: Service Date/Time: Thursday, July 06, 2017 17:12 - CONCLUSION: Left greater than right patchy interstitial infiltrate. Viral or atypical pneumonia or early community acquired pneumonia are in the differential. Stephon Robert MD A/P Problem List: (1) CHF (congestive heart failure) ICD Codes: I50.9 - Heart failure, unspecified Status: Acute Plan: admitted to [facility] with sob and systolic chf exacerbation- - 2d echo consistent with low EF 30% (gumaro DC'd due to increasing renal function) - myocardial perfusion scan shows anterior and inferior wall defect with possible john-infarct ischemia patient transfered to [facility] for cardiac cath. - Cr now improved to baseline: -pt going for [facility] today with Dr Sam. If no intervention will hopefully d/c home later today....tomorrow if stent placed (2) Atrial fibrillation ICD Codes: I48.91 - Unspecified atrial fibrillation Status: Acute Plan: - improved - Telemetry (07/12): Afib now rate controlled - Cardizem increased back up to 240mg on /3 - one time dose of digoxin 07/12 - digoxin level 0.7 (07/13) (3) Hematuria ICD Codes: R31.9 - Hematuria, unspecified Status: Acute Plan: - comgmt with Urology - henriquez trauma - pt on flomax henriquez removed and pvr's less than 300 per nursing. f/u Urology (4) DM2 (diabetes mellitus, type 2) ICD Codes: E11.9 - Type 2 diabetes mellitus without complications Status: Chronic (5) COPD (chronic obstructive pulmonary disease) ICD Codes: J44.9 - Chronic obstructive pulmonary disease, unspecified Status: Chronic Plan: O2dep copd baseline 3LNC per pt Also cpap for MAIRA Problem Qualifiers (1) CHF (congestive heart failure): Qualified Codes: I50.9 - Heart failure, unspecified (2) Atrial fibrillation: Qualified Codes: I48.91 - Unspecified atrial fibrillation (3) DM2 (diabetes mellitus, type 2): Monster Nathan MD Jul 14, 2017 08:02
[2017-07-14] MEDS: PATIENT OWN: (Linagliptin (Tradjenta) 5 MG) PO SCH (08:16)
[2017-07-14] MEDS: metFORMIN HCL 500 MG TAB PO SCH ×2 (08:17→16:23)
[2017-07-14] MEDS: POTASSIUM CHLORIDE 8 MEQ CONTROLLED RELEASE TAB PO SCH ×2 (08:23→20:43)
[2017-07-14] MEDS: ASPIRIN 325 MG TAB PO SCH (08:23)
[2017-07-14] MEDS: DILTIAZEM-CD 120 MG CAP ER PO SCH (08:23)
[2017-07-14] MEDS: FUROSEMIDE 20 MG TAB PO SCH ×2 (08:23→16:48)
--- NOTE | 2017-07-14 08:23 | PD.CARD.PN ---
Subjective Subjective Remarks breathing improved henriquez out no complaints good UOP Objective Medications Current Medications Medications (Trade) Dose Ordered Sig/Smiley Route Start Time Stop Time Status Last Admin (Aspirin) 325 mg DAILY PO 07/07/17 09:00 07/13/17 09:10 (Glucophage) 500 mg BIDPC PO 07/07/17 09:00 07/13/17 17:19 (Flomax) 0.4 mg DAILY PO 07/07/17 09:00 07/13/17 09:10 (NS Flush) 2 ml UNSCH PRN IV FLUSH 07/06/17 19:00 07/10/17 23:24 (NS Flush) 2 ml BID IV FLUSH 07/06/17 21:00 07/13/17 20:35 (Tylenol) 650 mg Q4H PRN PO 07/06/17 19:00 (Narcan Inj) 0.4 mg UNSCH PRN IV PUSH 07/06/17 19:00 (Cristina-Colace) 1 tab BID PO 07/06/17 21:00 07/13/17 20:35 (Milk Of Magnesia Liq) 30 ml Q12H PRN PO 07/06/17 19:00 07/13/17 09:12 (Senokot) 17.2 mg Q12H PRN PO 07/06/17 19:00 07/10/17 20:45 (Dulcolax Supp) 10 mg DAILY PRN RECTAL 07/06/17 19:00 (Lactulose Liq) 30 ml DAILY PRN PO 07/06/17 19:00 07/13/17 15:05 (NovoLOG SUPPLEMENTAL SCALE) 1 ACHS SLIDING SCALE SQ 07/06/17 21:00 07/12/17 17:09 Patient Own Medication PT OWN MED: (Linagliptin (Tradjenta)... DAILY PO 07/07/17 09:00 07/13/17 09:11 (D50w (Vial) Inj) 50 ml UNSCH PRN IV PUSH 07/06/17 19:30 (Glucagon Inj) 1 mg UNSCH PRN OTHER 07/06/17 19:30 (Restoril) 30 mg HS PRN PO 07/07/17 21:00 07/13/17 20:34 (KCl) 8 meq Q12HR PO 07/08/17 21:00 07/13/17 20:35 (Pyridium) 100 mg Q8HR PO 07/11/17 06:00 07/14/17 06:07 ([place] 5-325 Mg) 1 tab Q4H PRN PO 07/11/17 16:45 07/13/17 09:12 (Morphine Inj) 4 mg Q8H PRN IV 07/11/17 17:00 07/13/17 13:23 (Cardizem Cd) 240 mg DAILY PO 07/13/17 09:00 07/13/17 09:11 (Lasix) 20 mg BID@,18 PO 07/12/17 18:00 07/13/17 17:18 Vital Signs / I&O Vital Signs Date Time Temp Pulse Resp B/P (MAP) Pulse Ox O2 Delivery O2 Flow Rate FiO2 07/14/17 07:46 Nasal Cannula 3.00 07/14/17 07:00 91 Nasal Cannula 3.00 07/14/17 07:00 63 07/14/17 07:00 97.8 66 20 155/66 (95) 91 07/14/17 06:00 63 07/14/17 05:10 52 07/14/17 04:00 57 07/14/17 03:05 98.2 80 17 135/56 (82) 95 07/14/17 03:03 96 3.00 07/14/17 03:00 61 07/14/17 02:00 62 07/14/17 01:04 60 07/14/17 00:05 63 07/13/17 23:00 73 07/13/17 23:00 95 Nasal Cannula 3.00 07/13/17 23:00 97.9 85 18 121/59 (79) 95 07/13/17 22:00 82 07/13/17 21:00 75 07/13/17 20:00 84 07/13/17 20:00 Nasal Cannula 3.00 07/13/17 19:49 97.6 93 17 132/60 (84) 93 07/13/17 19:46 94 Nasal Cannula 3.00 07/13/17 19:00 91 07/13/17 18:00 90 07/13/17 17:00 80 07/13/17 16:00 73 07/13/17 15:00 57 07/13/17 15:00 96 Nasal Cannula 3.00 07/13/17 15:00 98.4 60 19 155/67 (96) 96 07/13/17 14:00 62 07/13/17 13:41 19 07/13/17 13:00 77 07/13/17 12:00 90 07/13/17 11:00 92 Nasal Cannula 3.00 07/13/17 11:00 97.4 92 19 141/63 (89) 92 07/13/17 11:00 19 07/13/17 11:00 93 07/13/17 10:25 51 16 153/67 (95) 93 07/13/17 10:21 91 Nasal Cannula 3.50 07/13/17 10:00 82 07/13/17 09:00 87 I/O 07/13/17 07/13/17 07/13/17 07/14/17 07/14/17 07/14/17 07:00 15:00 23:00 07:00 15:00 23:00 Intake Total 480 ml 720 ml 240 ml Output Total 625 ml 450 ml 325 ml Balance -145 ml 270 ml -85 ml Intake Oral 480 ml 720 ml 240 ml Output Urine Total 625 ml 450 ml 325 ml # Bowel Movements 0 Physical Exam NECK: Supple, trachea midline. + JVD CARDIOVASCULAR: Regular rate and rhythm without murmurs, gallops, or rubs. RESPIRATORY: Breath sounds equal bilaterally. +bibasilar crackles GASTROINTESTINAL: Abdomen soft, non-tender, nondistended. MUSCULOSKELETAL: No cyanosis, trace edema. Laboratory Laboratory Tests Test 07/14/17 05:50 White Blood Count 8.9 TH/MM3 Red Blood Count 4.17 MIL/MM3 Hemoglobin 13.0 GM/DL Hematocrit 38.9 % Mean Corpuscular Volume 93.3 FL Mean Corpuscular Hemoglobin 31.3 PG Mean Corpuscular Hemoglobin Concent 33.5 % Red Cell Distribution Width 14.4 % Platelet Count 269 TH/MM3 Mean Platelet Volume 9.4 FL Neutrophils (%) (Auto) 65.4 % Lymphocytes (%) (Auto) 16.7 % Monocytes (%) (Auto) 13.1 % Eosinophils (%) (Auto) 4.2 % Basophils (%) (Auto) 0.6 % Neutrophils # (Auto) 5.8 TH/MM3 Lymphocytes # (Auto) 1.5 TH/MM3 Monocytes # (Auto) 1.2 TH/MM3 Eosinophils # (Auto) 0.4 TH/MM3 Basophils # (Auto) 0.1 TH/MM3 CBC Comment DIFF FINAL Differential Comment Blood Urea Nitrogen 19 MG/DL Creatinine 1.02 MG/DL Random Glucose 71 MG/DL Calcium Level 8.9 MG/DL Sodium Level 138 MEQ/L Potassium Level 4.2 MEQ/L Chloride Level 101 MEQ/L Carbon Dioxide Level 33.0 MEQ/L Anion Gap 4 MEQ/L Estimat Glomerular Filtration Rate 71 ML/MIN Assessment and Plan Problem List: (1) Cardiomyopathy ICD Codes: I42.9 - Cardiomyopathy, unspecified (2) CHF (congestive heart failure) ICD Codes: I50.9 - Heart failure, unspecified Status: Acute Assessment and Plan CHF - monitor I/O's. Cr. low dose Lasix IV. cardiomyopathy. abn stress. suspect NICM. [facility] today. afib - now NSR. DC planning. Problem Qualifiers (1) CHF (congestive heart failure): Qualified Codes: I50.9 - Heart failure, unspecified Flaco,Juan C Hare MD Jul 14, 2017 08:23
[2017-07-14] MEDS: DOCUSATE SODIUM 50 MG/SENNA 8.6 MG TAB PO SCH ×2 (08:24→20:42)
[2017-07-14] MEDS: SODIUM CHLORIDE 0.9% FLUSH 10 ML FLUSH IV FLUSH SCH ×2 (08:24→20:43)
[2017-07-14] MEDS: TAMSULOSIN HCL 0.4 MG CAP PO SCH (08:24)
[2017-07-14] MEDS ORDERED: HEPARIN SODIUM - IV 10,000 UNITS/10 ML VIAL ONE (13:28)
[2017-07-14] MEDS ORDERED: MIDAZOLAM HCL 2 MG/2 ML VIAL ONE (13:41)
[2017-07-14] MEDS ORDERED: MISC INFORMATION XX ONE (14:15)
[2017-07-14] MEDS ORDERED: BACITRACIN OINT 0.9 GM PKT TOP ONE (14:15)
[2017-07-14] MEDS ORDERED: ONDANSETRON HCL 4 MG/2 ML VIAL IV PUSH PRN (14:15)
[2017-07-14] MEDS ORDERED: ATROPINE SULFATE 1 MG/ML VIAL IV PUSH PRN (14:15)
[2017-07-14] MEDS ORDERED: METOCLOPRAMIDE HCL 10 MG/2 ML VIAL IV PUSH PRN (14:15)
[2017-07-14] MEDS ORDERED: SODIUM CHLOR 0.9% 250 ML INJ 250 ML IV PRN (14:15)
[2017-07-14] MEDS ORDERED: APIX5TAB PO (14:34)
[2017-07-14] MEDS ORDERED: FURO20TA PO (14:34)
[2017-07-14] MEDS ORDERED: KLOR8TAB PO (14:34)
[2017-07-14] MEDS ORDERED: DILT120C50 PO (14:34)
--- NOTE | 2017-07-14 14:35 | HHI.DCPOC ---
Discharge Care Plan Diagnosis: (1) CHF (congestive heart failure) (2) Atrial fibrillation (3) DM2 (diabetes mellitus, type 2) (4) COPD (chronic obstructive pulmonary disease) (5) Hematuria Goals to Promote Your Health * To prevent worsening of your condition and complications * To maintain your health at the optimal level Directions to Meet Your Goals Take your medications as prescribed Follow your dietary instruction Follow activity as directed Keep your appointments as scheduled Take your immunizations and boosters as scheduled If your symptoms worsen call your PCP, if no PCP go to Urgent Care Center or Emergency Room Smoking is Dangerous to Your Health. Avoid second hand smoke Call the 24-hour hour crisis hotline for domestic abuse at [employer] Nathan MD Jul 14, 2017 14:35
--- NOTE | 2017-07-14 14:36 | HHI.FF ---
Face to Face Verification Diagnosis: (1) CHF (congestive heart failure) (2) DM2 (diabetes mellitus, type 2) (3) Atrial fibrillation (4) COPD (chronic obstructive pulmonary disease) Physical Therapy Order: Evaluate and Treat, Improve ambulation Home Health Nursing Order: Medical education Signs/symptoms of disease process CHF education Medication education-adverse effect Nursing assessment with vital signs I have seen patient Micah Noyola on 07/14/17. My clinical findings support the need for the requested home health care services because: Patient has SOB I certify that my clinical findings support that this patient is homebound because: Poor cardiac reserve Monster Nathan MD Jul 14, 2017 14:36
--- NOTE | 2017-07-14 14:41 | HHI.DS ---
Discharge Summary Admission Date Jul 06, 2017 at 18:00 Discharge Date: Jul 14, 2017 Admitting Diagnosis respiratory distress, congestive heart failure, pneumonia (1) CHF (congestive heart failure) Diagnosis: Principal ICD Codes: I50.9 - Heart failure, unspecified Status: Acute (2) Atrial fibrillation Diagnosis: Principal ICD Codes: I48.91 - Unspecified atrial fibrillation Status: Acute (3) Hematuria Diagnosis: Principal ICD Codes: R31.9 - Hematuria, unspecified Status: Acute (4) DM2 (diabetes mellitus, type 2) Diagnosis: Secondary ICD Codes: E11.9 - Type 2 diabetes mellitus without complications Status: Chronic (5) COPD (chronic obstructive pulmonary disease) Diagnosis: Secondary ICD Codes: J44.9 - Chronic obstructive pulmonary disease, unspecified Status: Chronic Brief History 77-year-old male came to the emergency room brought by EMS with history of progressive shortness of breath for past 2-3 days. Patient was recently diagnosed with atrial fibrillation last week. His daughter is here was giving more of the medical history. She is a nurse. Patient denies any chest pain. Patient says the shortness of breath is worse when he tries to lay down flat. Patient requires CPAP at night and says that the CPAP doesn't really help with this shortness of breath. He has to sleep sitting up. He has been short of breath on exertion as well. No history of fever or chills. He is not really coughing or bringing up any sputum patient requires 2 L of oxygen at home. His oxygen saturation was 90% on 2 L of oxygen. Patient has not seen a surgical training specialist yet and has an appointment on Friday. In er chest xray was consistent with probable CHF and possibly infiltrates and given lasix and started on rocephin and zithromax. CBC/BMP: 07/14/17 0550 07/14/17 0550 Significant Findings Laboratory Tests Test 07/12/17 03:43 07/13/17 04:32 07/14/17 05:50 White Blood Count 12.8 TH/MM3 (4.0-11.0) Red Blood Count 4.15 MIL/MM3 (4.50-5.90) 4.09 MIL/MM3 (4.50-5.90) 4.17 MIL/MM3 (4.50-5.90) Hematocrit 38.7 % (39.0-51.0) 38.7 % (39.0-51.0) 38.9 % (39.0-51.0) Neutrophils (%) (Auto) 74.2 % (16.0-70.0) Monocytes (%) (Auto) 11.8 % (0.0-8.0) 14.7 % (0.0-8.0) 13.1 % (0.0-8.0) Neutrophils # (Auto) 9.5 TH/MM3 (1.8-7.7) Monocytes # (Auto) 1.5 TH/MM3 (0-0.9) 1.5 TH/MM3 (0-0.9) 1.2 TH/MM3 (0-0.9) Blood Urea Nitrogen 30 MG/DL (7-18) 27 MG/DL (7-18) 19 MG/DL (7-18) Random Glucose 49 MG/DL (74-106) 67 MG/DL (74-106) 71 MG/DL (74-106) Carbon Dioxide Level 36.0 MEQ/L (21.0-32.0) 34.3 MEQ/L (21.0-32.0) 33.0 MEQ/L (21.0-32.0) Estimat Glomerular Filtration Rate 59 ML/MIN (>89) 64 ML/MIN (>89) 71 ML/MIN (>89) Hemoglobin 12.9 GM/DL (13.0-17.0) Digoxin Level 0.7 NG/ML (0.8-2.0) Eosinophils (%) (Auto) 4.2 % (0.0-4.0) Anion Gap 4 MEQ/L (5-15) Hospital Course (1) CHF (congestive heart failure) admitted to [facility] with sob and systolic chf exacerbation- - 2d echo consistent with low EF 30% (gumaro DC'd due to increasing renal function) - myocardial perfusion scan shows anterior and inferior wall defect with possible john-infarct ischemia patient transfered to [facility] for cardiac cath. - Cr now improved to baseline: -Pt had lhc with dr Delong on 07/14 and coronaries are nml . felt to have nonischemic cardiomyopathy discussed with dr Delong who discussed with daughter. d/c today cont ccb and start eliquis tomorrow. cont lasix bid and f/u in office. ok to resume gumaro. (2) Atrial fibrillation ICD Codes: I48.91 - Unspecified atrial fibrillation Status: Acute Plan: - improved - Telemetry (07/12): Afib now rate controlled - Cardizem increased back up to 240mg on 07/12 - one time dose of digoxin 07/12 - digoxin level 0.7 (07/13) (3) Hematuria ICD Codes: R31.9 - Hematuria, unspecified Status: Acute Plan: - comgmt with Urology - henriquez trauma - pt on flomax henriquez removed and pvr's less than 300 per nursing. f/u Urology (4) DM2 (diabetes mellitus, type 2) ICD Codes: E11.9 - Type 2 diabetes mellitus without complications Status: Chronic (5) COPD (chronic obstructive pulmonary disease) ICD Codes: J44.9 - Chronic obstructive pulmonary disease, unspecified Status: Chronic Plan: O2dep copd baseline 3LNC per pt Also cpap for MAIRA Pt Condition on Discharge: Stable Discharge Disposition: Disch w/ Home Health Serv Discharge Instructions DIET: Follow Instructions for: Diabetic Diet Follow up Referrals: Cardiology - 10 Days with syed delong PCP Follow-up - [address] abby diez Urology - 10 Days with Young Bello MD New Medications: Apixaban (Eliquis) 5 Mg Tab 5 MG PO BID for afib, #60 TAB 3 Refills Diltiazem CD 24 HR (Diltiazem CD 24 HR) 120 Mg Caper 240 MG PO DAILY for afib for 30 Days, #60 CAP 3 Refills Furosemide (Furosemide) 20 Mg Tab 20 MG PO BID@09,18 for swelling, #60 TAB 3 Refills Potassium Chloride ER (Klor-Con 8) 8 Meq Tab 8 MEQ PO Q12HR for supplement, #60 TAB 3 Refills Continued Medications: Aspirin (Aspirin) 325 Mg Tab 325 MG PO DAILY, #30 TAB 0 Refills Glyburide (Glyburide) 2.5 Mg Tab 0 PO BID for Blood Sugar Management, #60 TAB 0 Refills Take with meals at the same time each day Linagliptin (Tradjenta) 5 Mg Tab 5 MG PO DAILY for Blood Sugar Management, #30 TAB 0 Refills Lisinopril (Lisinopril) 5 Mg Tab 0 PO DAILY for Blood Pressure Management, #30 TAB 0 Refills Metformin (Metformin) 500 Mg Tab 0 PO BIDPC for Blood Sugar Management, #60 TAB 0 Refills Tamsulosin (Flomax) 0.4 Mg Cap 0 PO DAILY for Manage Prostate Problems, #30 CAP 0 Refills Discontinued Medications: Furosemide (Lasix) 20 Mg Tab 20 MG PO DAILY, #30 TAB 0 Refills Hydrochlorothiazide (Hydrochlorothiazide) 12.5 Mg Cap 0 PO DAILY, #30 CAP 0 Refills Monster Nathan MD Jul 14, 2017 14:41
--- NOTE | 2017-07-14 14:47 | MA ---
cc: SINTIA SNYDER DATE 07/14/2017 INDICATION Cardiomyopathy, abnormal stress test. PROCEDURE PERFORMED 1. Fluoroscopy with interpretation. 2. Coronary angiography. METHOD The risks, benefits and alternatives were discussed with the patient. The patient understood and consented to the procedure. The patient was brought into the catheterization lab and placed on the catheterization table. The right groin was prepped and draped in a sterile fashion. The right groin was anesthetized with 2% lidocaine. The right common femoral artery was cannulated and a 4 Mongolian, 11 cm sheath was placed without difficulty. CORONARY ANGIOGRAPHY 1. The left main coronary is angiographically normal. 2. The left anterior descending coronary has mild luminal irregularities, otherwise angiographically normal. 3. The left circumflex is a dominant vessel giving rise to a posterior descending branch and angiographically normal. 4. The right coronary is nondominant and angiographically normal. CONCLUSIONS Mild nonobstructive coronary artery disease. PLAN Will continue with aggressive medical therapy. The patient has nonischemic cardiomyopathy. Reinitiate anticoagulation starting tomorrow. MD CRISSY Swartz/CORTNEY /2:14 PM /2:37 PM
--- NOTE | 2017-07-14 14:50 | CATHPROC ---
NTQ-Data HIS Report Study Information Study Number Scheduled Start Study Start [id number] 07/14/2017 Jul 14 2017 1:24PM Referring Institution Admit Source Facility Department 1 Emergency department [facility] - Emergency Department Manager Physician and Clinical Staff Initial Juan C Machado Cold Storage Worker Lauri Mayers,SUSANA Recorder Kaylin Hong BSN Recorder Emilia Freitas,RT(R) Scrub Srikanth Saunders RCIS(BS) Scrub Valeria Kulkarni ,RT(R) Procedures Performed Procedure Location (Site) Vessel Name Coronary Angiograms LCA Left Coronary Coronary Angiograms RCA Right Coronary L Heart Cath Equipment Time Access Clinician Description Size Mfg Part Number Used/Scraped TRANSDUCER, TRUWAVE [id number] 13:30 FATIMA MARTEL * Used W/STOCKCOCK *[id number] [id number] *[id number] [id number] *[id number] [id number] *[id number] 13:30 MEDLINE INDUSTRIES PACK, CCL CUSTOM * Used *[id number] 13:30 Sova PACER PEN, SKIN DUAL W/ RULER * Used *[id number] 13:30 [employer] MEDICAL WIRE, 3MMJ .035 180CM 180CM Used *[id number] 13:30 NAMIC MANIFOLD, 4 PORT * Used *[id number] 13:30 NYCOMED OMNIPAQUE, 350 MG, 150ML 150ML [id number] Used [id number] 13:30 SAINZ MEDICAL BLANKET,WARM AIR CCL * Used *[id number] 13:30 TERUMO MEDICAL SHEATH, FR4 TERUMO (10CM) FR 4 Used *[id number] History: Current Medications Medication Dosage/Unit Route Frequency Last Date/Time Taken ASA Glucophage CARDIZEM LASIX LISINOPRIL History: Allergies Allergy Reaction No Known Allergies History: Risk Factors Family History of Hypertension Dyslipidemia Previous PR Previous Heart Failure Premature CAD Yes No No No Yes Prior Valve Prior PCI Prior CABG Surgery No No No Cerebrovascular Peripheral Artery Chronic Lung On Dialysis Diabetes Diabetes Therapy Disease Disease Disease No No No Yes Yes Oral History: Symptoms/Diagnosis Selection Items SOB History: Stress Tests Stress or Imaging Studies Performed Yes Standard Exercise Stress Test No Stress Echo No Stress Test SPECT Stress Test SPECT Result Stress Test SPECT Ischemia Risk/Extent Yes Positive High Stress Test CMR No Cardiac CTA Coronary Calcium Score No No History: Arrhythmias Selection Items Atrial fibrillation History: Other Disease Selection Items CHF COPD HTN History: Other Current Smoker Method Quit Packs a Day Years Used Pack Years No Cigarettes 25 Years Ago 2 35 70 Labs Hgb (g/dl) Hct (%) WBC (l/cumm) Platelets (thousands) 11.60-17.00 35.00-51.00 4.00-11.00 150.00-450.00 13.0 38.9 8.9 269 Glucose (mg/dl) BUN (mg/dl) Creatinine (mg/dl) BUN:Creatinine (1:x) 74.00-106.00 7.00-18.00 0.50-1.30 10.00-20.00 71 19 1.0 19 Na (meq/l) K (meq/l) 136.00-145.00 3.50-5.10 138 4.2 INR (PTT:PT) 0.90-1.10 1.1 CPK-MB (ng/ML) 0.50-3.60 Not Drawn Medication Medication Total Dose (Bolus/Oral) Medication Total Dosage/Unit 1% XYLOCAINE 20 mL FENTANYL 25 mcg VERSED 0.5 mg Medications (Bolus/Oral) Medication Time Given Dosage/Unit Administered By Reason VERSED 07/14/2017 1:45:50 PM 0.5 mg Lauri Mayers 0.5 mg VERSED given in lab by Lauri Mayers RN in Right Wrist via Peripheral IV. FENTANYL 07/14/2017 1:45:56 PM 25 mcg Lauri Mayers 25 mcg FENTANYL given in lab by Lauri Mayers RN in Right Wrist via Peripheral IV. Ordered by Juan C Sam. 1% XYLOCAINE 07/14/2017 1:48:14 PM 20 mL Lauri Mayers 20 mL 1% XYLOCAINE given in lab by Lauri Mayers RN in Right Groin via Subcutaneous. Medication (Drip) Medication Time Given Dosage/Unit Concentration/Unit Diluent (ml) Solution IV Solutions 07/14/2017 1:25:29 PM 50 mL (IV) NaCl .9 IV Solutions given in lab by Lauri Mayers RN in Right Wrist via Peripheral IV. Pump/Drip Flow usin g NaCl .9. Ordered by Juan C Sam. Initial Case Assessment Cardiovascular HR Rhythm NIBP Chest Pain 90 sr 140/81 0 Edema Present Skin color Skin None Normal Warm Dry Circulatory - Right Pulses Dorsalis Pedis Femoral 1 1 Scale (0,1,2,3,4,d) Circulatory - Left Pulses Dorsalis Pedis Femoral 1 1 Scale (0,1,2,3,4,d) Neurological State Oriented to time-place- Alert Moves all extremities person Respiration - General Respiration Rate SpO2 (%) O2 (lpm) (B/min) 20 91 4 Chronological Log Time Study Chronological Log 13:20:20 Patient arrived via Bed. 13:25:11 Patient Name, D.O.B, / Armband Verified By R.N. 13:25:12 Consent signed by the physician and the patient and verified by the Emergency Department Manager staff. 13:25:12 Pre-op and post- op instructions given; patient acknowledges understanding of instruction s. 13:25:13 Verbal Stimulation=2 Physical Stimulation=2 Airway=2 Respiration=2 TOTAL=8. (0=absent, 1= limited, 2=present) 13:25:17 Patient has been NPO for More than 6Hrs. 13:25:22 Presedation assessment performed by Emergency Department Manager RN. 13:25:25 Skin Breakdown- 13:25:26 Patient Warmer Placed on the Table. 13:25:26 Cristobal Prominences Protected 13:25:28 A # 20 IV was noted in the Wrist (right). Grade = 0 IV Solutions given in lab by Lauri Mayers, RN in Right Wrist via Peripheral IV. Pump/Drip F low using NaCl .9. Ordered 13:25:29 by Juan C Sam. 13:25:29 History and physical on the chart or being dictated. Assessment: Initial Case, HR=90 BPM, Rhythm=sr, ZAJJ=005/81 mmhg, Chest Pain=0, Edema=None, Col or=Normal, Skin = Warm, Dry Right Pulses: Kieran Ped=1, Femoral=1 13:25:30 Left Pulses: Kieran Ped=1, Femoral=1 Neurological: State=Alert, Ox3, TODD Respiration: Resp=20 B/min, SpO2=91 %, O2=4 lpm 13:32:10 Reference ECG taken Vitals capture started with the following parameters, Patient=Adult, Interval=5 min, Initial Pr vqvcbp=920 mmHg, 13:34:02 Deflation Rate=5 mmHg, Cuff placed on Left Arm 13:34:47 HR=87 bpm, WOUW=373/81 mmhg, SpO2=91.0 %, Resp=19 B/min, Pain=0, Jessica=10, Hernandez=2 13:36:40 Bilateral groins prepped with 2% chlorhexidine, and draped after a 3 minute waiting time. 13:39:46 HR=85 bpm, DBOL=782/83 mmhg, SpO2=91.0 %, Resp=17 B/min 13:40:38 MD paged 13:40:51 MD responded 13:44:48 MD arrived. 13:44:51 HR=89 bpm, VJJY=401/81 mmhg, SpO2=92.0 %, Resp=15 B/min, Pain=0, Jessica=10, Hernandez=2 13:45:50 0.5 mg VERSED given in lab by Lauri Mayers, SUSANA in Right Wrist via Peripheral IV. 13:45:56 25 mcg FENTANYL given in lab by Lauri Mayers, SUSANA in Right Wrist via Peripheral IV. Ordere d by Juan C Sam. Time Out. Correct patient, correct procedure, correct physician, power injector loaded, or not loaded with contrast with 13:47:45 surgical team present. Time Out Concurred by MD and individual staff in procedure. 13:47:48 Case Start 13:48:14 20 mL 1% XYLOCAINE given in lab by Lauri Mayers, SUSANA in Right Groin via Subcutaneous. 13:49:34 Access site was Right Femoral Artery. 13:49:52 HR=81 bpm, ZNZO=626/84 mmhg, SpO2=88.0 %, Resp=20 B/min, Pain=0, Jessica=10, Hernandez=2 13:50:07 A SHEATH, FR4 TERUMO (10CM) FR 4 was advanced into the Fem Art (right) using the Percutaneo us technique. A JL 4.0 INFINITI CATHETER FR 4 was advanced over a wire. OMNIPAQUE, 350 MG, 150ML 150ML was us ed for 13:51:39 injections. After removing the current catheter a JL 5.0 INFINITI CATHETER FR 4 was advanced over a WIRE, 3 MMJ .035 180CM 13:53:49 180CM. 13:54:47 HR=82 bpm, DYQH=732/76 mmhg, SpO2=90.0 %, Resp=19 B/min, Pain=0, Jessica=10, Hernandez=2 13:55:46 The LCA was injected and visualized at various angles. OMNIPAQUE, 350 MG, 150ML 150ML used . 13:59:48 HR=91 bpm, DZFQ=981/87 mmhg, SpO2=89.0 %, Resp=18 B/min After removing the current catheter a JR 4.0 INFINITI CATHETER FR 4 was advanced over a WIRE, 3 MMJ .035 180CM 14:01:15 180CM. 14:04:45 XP=026 bpm, GOLN=313/83 mmhg, SpO2=88.0 %, Resp=16 B/min Recorded Pressure: Ao, HR=90, Condition=Condition 1 14:05:00 (Aorta) Ao 145/82/108 After removing the current catheter a MPA-2 INFINITI CATHETER FR 4 was advanced over a WIRE, 3M MJ .035 180CM 14:05:48 180CM. 14:07:50 The RCA was injected and visualized at various angles. OMNIPAQUE, 350 MG, 150ML 150ML used . 14:08:10 Catheter was removed 14:08:30 Case End 14:09:46 HR=91 bpm, TIOE=184/88 mmhg, SpO2=86.0 %, Resp=20 B/min 14:14:49 HR=87 bpm, HXWO=661/80 mmhg, SpO2=87.0 %, Resp=20 B/min 14:16:20 Sheath removed; pressure applied to access site. 14:20:23 HR=88 bpm, MASS=196/83 mmhg, SpO2=87.0 %, Resp=27 B/min 14:24:49 HR=84 bpm, GWEH=260/74 mmhg, SpO2=85.0 %, Resp=26 B/min 14:29:59 Sterile dressing applied to site 14:30:12 Cine recording checked. 14:30:20 Bedside Report will be given. 14:30:29 HR=88 bpm, TPNR=740/79 mmhg, SpO2=86.0 %, Resp=27 B/min 14:30:32 Report called to CPCU floor. 14:31:08 No case complications noted. 14:31:39 A Left Heart Cath was performed. 14:34:53 HR=78 bpm, MNGM=995/79 mmhg, SpO2=86.0 %, Resp=28 B/min 14:40:05 HR=80 bpm, TXSX=815/59 mmhg, SpO2=93.0 %, Resp=21 B/min 14:41:28 Vitals capture stopped. 14:43:44 [facility] End Study - Contrast Media Used In Study Contrast Total Opened (mL) Total Used (mL) Total Wasted (mL) Omnipaque 30 30 0 End Study - Maximum Contrast Load Max Contrast Load (mL) 595.5 End Study - Radiation Exposure Fluoro Time (minutes) 9.2 End Study - Sheaths Sheaths Pulled By Sheath Hold Time (min) Valeria Kulkarni 20 End Study - Patient Disposition Complications Transferred To Interventional Outcome No Telemetry Bed No attempt made
[2017-07-14] MEDS ORDERED: IOHEXOL 350 MG/ML 50 ML BTL (for Cath Lab) OTHER ONE (15:12)
[2017-07-14] MEDS: ACETAMINOPHEN/HYDROcodone 325 MG/5 MG TAB PO PRN (20:43)
[2017-07-15] MEDS ORDERED: LISINOPRIL 5 MG TAB PO SCH (09:00)
== END 2017-07-14 22:16 | disposition home health service (06) | DRG 286 ==
LOC: PHED 16:49 → PHEDA 18:00 → PH3A 19:45 → HCPC 07-10 08:35
PROVIDERS: ADMIT Hospitalist; ATTEND Hospitalist
PROC: B2111ZZ Fluoroscopy of Multiple Coronary Arteries using Low Osmolar Contrast (ICD-10-PCS; principal; 2017-07-14 11:15)
DX: I50.23 Acute on chronic systolic (congestive) heart failure (principal); J18.9 Pneumonia, unspecified organism; I42.9 Cardiomyopathy, unspecified; Z99.81 Dependence on supplemental oxygen; J44.0 Chronic obstructive pulmonary disease with (acute) lower respiratory infection; S37.39XA Other injury of urethra, initial encounter; Y84.6 Urinary catheterization as the cause of abnormal reaction of the patient, or of later complication, without mention of misadventure at the time of the procedure; R31.9 Hematuria, unspecified; I48.91 Unspecified atrial fibrillation; E11.9 Type 2 diabetes mellitus without complications; Z79.84 Long term (current) use of oral hypoglycemic drugs; E66.01 Morbid (severe) obesity due to excess calories; Z68.32 Body mass index [BMI] 32.0-32.9, adult; Z79.82 Long term (current) use of aspirin; I25.10 Atherosclerotic heart disease of native coronary artery without angina pectoris; G47.33 Obstructive sleep apnea (adult) (pediatric); I10 Essential (primary) hypertension; R79.89 Other specified abnormal findings of blood chemistry
CPT/HCPCS: 71045; 71046; 78452; 80048; 80061; 80162; 82948; 83880; 84484; 85025; 85610; 87040; 87086; 93005; 93017; 93306; 93454; 94640; 94664; 96374; A9502; C1769; C1893; J0456; J0696; J1160; J1644; J1815; J1940; J2250; J2270; J2785; J2930; J3010; J7050; Q9967